=== PATIENT | male | born 1930 | race Caucasian/White ===

== ENCOUNTER 2017-02-08 10:00 | Inpatient (IN) | payer MEDICARE, BC ==
[~2017-02-08] VITALS: Ht 182.9 cm; Wt 84.8 kg
[~2017-02-08 10:00] MED LIST: ASPI81 PO; DONE5TAB14 PO; DORZ2SOL3 EACH EYE; FOLI20CA PO; LANTUS2P SQ; LEVO.025 PO; LORTA5 PO; MAGN400T PO; MEMA1TAB2; METF500 PO; METH1TAB2 PO; MIRA33502 PO; MORP30SU PO; NOVONP2 SQ; POTA-243 PO; SENN8.6T15 PO; TAB-TAB PO; VITA100032; ZOCO80TA PO
[2017-02-08 10:08] VITALS: BP 123/59; PULSE 67; RESP 16; TEMP 98.8; O2SAT 97
--- NOTE | 2017-02-08 11:20 | PD ---
HPI Chief Complaint: Fall Time Seen by Provider: 11:02 Travel History International Travel<30 days: No Contact w/Intl Traveler<30days: No Traveled to known affect area: No History of Present Illness HPI The patient is a 86-year-old male who presents to the emergency department with his son for right hip pain. The son states the patient fell several days ago at the assisted living facility, they obtained an outpatient x- ray, report was negative. However, the patient is continued to complain of some mild right sided hip pain and has fallen twice since the initial fall, the son thinks secondary to right hip pain. 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 The patient apparently fell last night striking the front of his head, he the son is unsure if there was a loss of consciousness. The patient denies any headache, neck pain, chest pain, shortness breath, or abdominal pain. He does complain of pain located over the lateral aspect the right hip. The son also states the patient has a chronic history of lower extremity edema and there has been increased edema to lower extremities or last several days. The patient does wear compression stockings and calf wraps. The patient's symptoms are moderate, possibly exacerbated after a fall, and there are no current alleviating factors. PFSH Past Medical History Arthritis: Yes Heart Rhythm Problems: No Cancer: Yes (RT KIDNEY CA-REMOVED.) Cardiac Catheterization: No Cardiovascular Problems: No High Cholesterol: Yes Congestive Heart Failure: No Cerebrovascular Accident: Yes (POSSIBLE TIA 20 YRS AGO) Diabetes: Yes (type II) Patient Takes Glucophage: Yes Diminished Hearing: Yes ([place]) Glaucoma: Yes Hypertension: Yes Immunizations Current: Yes Myocardial Infarction: No Thyroid Disease: Yes (hypo) Past Surgical History Cholecystectomy: Yes Coronary Artery Bypass Graft: No Genitourinary Surgery: Yes (RT NEPHRECTOMY 2006) Joint Replacement: Yes (LEFT KNEE- osteotomy) Other Surgery: Yes (RT URETER CANCER) Family History Family Myocardial Infarction: No Social History Alcohol Use: No Tobacco Use: No Substance Use: No Allergies-Medications (Allergen,Severity, Reaction): Coded Allergies: Visipaque (Verified Allergy, Severe, Hives, 02/08/17) Codeine (Verified Adverse Reaction, Intermediate, Nausea/Vomiting, 02/08/17 ) Reported Meds & Prescriptions Reported Meds & Active Scripts Active Reported Hydrocodone-Acetaminophen 5-325 mg Tab 1 Tab PO Q4H PRN Clonazepam 0.5 Mg Tab 0.5 Mg PO BID PRN Vitamin D-3 (Cholecalciferol) 2,000 Unit Tab Zocor (Simvastatin) 40 Mg Tab 40 Mg PO DAILY Senna Lax (Sennosides) 8.6 Mg Tab Morphine ER (Morphine Sulfate) 30 Mg Tab 30 Mg PO BID Metoprolol Tartrate 25 Mg Tab 25 Mg PO BID Methenamine Hippurate 1 Gm Tab 1 Gm PO BID Metformin (Metformin HCl) 1,000 Mg Tab 1,000 Mg PO BIDPC With meals Memantine 10 Mg Tab 10 Mg PO BID Magnesium Oxide 250 Mg Tab 250 Mg PO BID Losartan (Losartan Potassium) 50 Mg Tab 75 Mg PO BID Levothyroxine (Levothyroxine Sodium) 50 Mcg Tab 50 Mcg PO DAILY Lantus Inj (Insulin Glargine) 100 Unit/Ml Inj 26 Units SQ HS Klor-Con 10 (Potassium Chloride) 10 Meq Tab 10 Meq PO DAILY Hydrochlorothiazide 25 Mg Tab 25 Mg PO DAILY Folic Acid 400 Mcg Tab 400 Mcg PO DAILY Escitalopram (Escitalopram Oxalate) 10 Mg Tab 10 Mg PO DAILY Dorzolamide Opth Drops (Dorzolamide HCl) 2% Soln 1 Drop EACH EYE BID Donepezil 10 Mg Tab 10 Mg PO HS Buspirone (Buspirone HCl) 5 Mg Tab 5 Mg PO TID Aspirin 81 Mg Chew 81 Mg CHEW DAILY Review of Systems Except as stated in HPI: all other systems reviewed are Neg HENT: No: Headaches, Neck Pain Cardiovascular: No: Chest Pain or Discomfort Respiratory: No: Shortness of Breath Gastrointestinal: No: Nausea, Vomiting, Abdominal Pain Musculoskeletal: Positive: Limited ROM, Pain Neurologic: Positive: Other (history of early dementia), No: Dizziness, Paresthesia, Sensory Disturbance Physical Exam Narrative GENERAL: Awake, alert, pleasant 86-year-old male who appears his stated age and is in no acute respiratory distress. SKIN: Abrasions noted over the frontal forehead. HEAD: Atraumatic. Normocephalic. EYES: Pupils equal and round. Pupils are 1 mm bilateral. ENT: No nasal bleeding or discharge. Slightly dry mucous membranes. NECK: Trachea midline. No JVD. CARDIOVASCULAR: Regular rate and rhythm. No murmur appreciated. RESPIRATORY: No accessory muscle use. Clear to auscultation. Breath sounds equal bilaterally. GASTROINTESTINAL: Abdomen soft, non-tender, nondistended. No rebound tenderness. MUSCULOSKELETAL: Ecchymosis noted over the lateral aspect of the right hip. Patient is able flex the right hip to 45 with moderate discomfort. Bilateral lower extremity pitting edema. NEUROLOGICAL: Awake and alert. No obvious cranial nerve deficits. Motor grossly within normal limits. Normal speech. Patient is oriented to person, month, and year. Patient did not know his current location. Back: No obvious step-off over the thoracic or lumbar vertebrae. PSYCHIATRIC: Appropriate mood and affect; insight and judgment normal. Data Data Last Documented VS Vital Signs Date Time Temp Pulse Resp B/P Pulse Ox O2 Delivery O2 Flow Rate FiO2 02/08/17 10:08 98.8 67 16 123/59 97 Orders Complete Blood Count With Diff (02/08/17 11:13) Comprehensive Metabolic Panel (02/08/17 11:13) Urinalysis - C+S If Indicated (02/08/17 11:13) Hip, Uni(Ap&Lat) W Ap Pelvis (02/08/17 ) Chest, Single Ap (02/08/17 ) Ct Brain W/O Iv Contrast(Rout) (02/08/17 ) Admit Order (Ed Use Only) (02/08/17 12:43) Consult Orthopedic (02/08/17 ) Labs Laboratory Tests Test 02/08/17 02/08/17 11:39 12:05 White Blood Count 11.1 TH/MM3 Red Blood Count 3.47 MIL/MM3 Hemoglobin 9.8 GM/DL Hematocrit 30.2 % Mean Corpuscular Volume 87.1 FL Mean Corpuscular Hemoglobin 28.2 PG Mean Corpuscular Hemoglobin 32.3 % Concent Red Cell Distribution Width 14.1 % Platelet Count 167 TH/MM3 Mean Platelet Volume 7.9 FL Neutrophils (%) (Auto) 77.0 % Lymphocytes (%) (Auto) 12.6 % Monocytes (%) (Auto) 6.3 % Eosinophils (%) (Auto) 3.1 % Basophils (%) (Auto) 1.0 % Neutrophils # (Auto) 8.6 TH/MM3 Lymphocytes # (Auto) 1.4 TH/MM3 Monocytes # (Auto) 0.7 TH/MM3 Eosinophils # (Auto) 0.3 TH/MM3 Basophils # (Auto) 0.1 TH/MM3 CBC Comment AUTO DIFF Differential Comment AUTO DIFF CONFIRMED Sodium Level 145 MEQ/L Potassium Level 3.4 MEQ/L Chloride Level 104 MEQ/L Carbon Dioxide Level 33.5 MEQ/L Anion Gap 8 MEQ/L Blood Urea Nitrogen 42 MG/DL Creatinine 1.20 MG/DL Estimat Glomerular Filtration 57 ML/MIN Rate Random Glucose 87 MG/DL Calcium Level 8.3 MG/DL Total Bilirubin 0.6 MG/DL Aspartate Amino Transf 27 U/L (AST/SGOT) Alanine Aminotransferase 24 U/L (ALT/SGPT) Alkaline Phosphatase 61 U/L Total Protein 6.5 GM/DL Albumin 2.8 GM/DL Urine Color YELLOW Urine Turbidity CLEAR Urine pH 6.0 Urine Specific [place] 1.022 Urine Protein TRACE mg/dL Urine Glucose (UA) NEG mg/dL Urine Ketones NEG mg/dL Urine Occult Blood NEG Urine Nitrite NEG Urine Bilirubin NEG Urine Leukocyte Esterase NEG Urine WBC 0-2 /hpf Urine Squamous Epithelial 0-5 /hpf Cells Urine Bacteria RARE /hpf Microscopic Urinalysis Comment CULT NOT INDICATED MDM Medical Decision Making Medical Screen Exam Complete: Yes Emergency Medical Condition: Yes Medical Record Reviewed: Yes Interpretation(s) Laboratory Tests Test 02/08/17 02/08/17 11:39 12:05 White Blood Count 11.1 TH/MM3 Red Blood Count 3.47 MIL/MM3 Hemoglobin 9.8 GM/DL Hematocrit 30.2 % Mean Corpuscular Volume 87.1 FL Mean Corpuscular Hemoglobin 28.2 PG Mean Corpuscular Hemoglobin 32.3 % Concent Red Cell Distribution Width 14.1 % Platelet Count 167 TH/MM3 Mean Platelet Volume 7.9 FL Neutrophils (%) (Auto) 77.0 % Lymphocytes (%) (Auto) 12.6 % Monocytes (%) (Auto) 6.3 % Eosinophils (%) (Auto) 3.1 % Basophils (%) (Auto) 1.0 % Neutrophils # (Auto) 8.6 TH/MM3 Lymphocytes # (Auto) 1.4 TH/MM3 Monocytes # (Auto) 0.7 TH/MM3 Eosinophils # (Auto) 0.3 TH/MM3 Basophils # (Auto) 0.1 TH/MM3 CBC Comment AUTO DIFF Differential Comment AUTO DIFF CONFIRMED Sodium Level 145 MEQ/L Potassium Level 3.4 MEQ/L Chloride Level 104 MEQ/L Carbon Dioxide Level 33.5 MEQ/L Anion Gap 8 MEQ/L Blood Urea Nitrogen 42 MG/DL Creatinine 1.20 MG/DL Estimat Glomerular Filtration 57 ML/MIN Rate Random Glucose 87 MG/DL Calcium Level 8.3 MG/DL Total Bilirubin 0.6 MG/DL Aspartate Amino Transf 27 U/L (AST/SGOT) Alanine Aminotransferase 24 U/L (ALT/SGPT) Alkaline Phosphatase 61 U/L Total Protein 6.5 GM/DL Albumin 2.8 GM/DL Urine Color YELLOW Urine Turbidity CLEAR Urine pH 6.0 Urine Specific [place] 1.022 Urine Protein TRACE mg/dL Urine Glucose (UA) NEG mg/dL Urine Ketones NEG mg/dL Urine Occult Blood NEG Urine Nitrite NEG Urine Bilirubin NEG Urine Leukocyte Esterase NEG Urine WBC 0-2 /hpf Urine Squamous Epithelial 0-5 /hpf Cells Urine Bacteria RARE /hpf Microscopic Urinalysis Comment CULT NOT INDICATED CT the brain reveals chronic changes, no acute findings. X-ray of the right hip reveals intertrochanteric fracture with avulsion of the greater trochanter. Intact pelvis and left hip. Chest x-ray reveals no acute disease. Differential Diagnosis Differential diagnosis includes subdural hemorrhage, pelvic fracture, hip fracture, hyponatremia, chronic lymphedema, contusion, hematoma, UTI. Narrative Course IV was established, labs were drawn and sent, and the patient was placed on cardiac telemetry monitoring and continuous pulse oximetry monitoring. Pelvis x -ray and x-ray the right hip were obtained. UA was sent to lab. X-ray of the pelvis and right hip reveals a right intertrochanteric fracture with avulsion of the right greater trochanter. Chest x-ray was obtained, unremarkable. CT the brain reveals chronic changes, no acute findings. The patient had morphine orally this morning, did not request pain medications or want pain medications upon evaluation in the emergency department. I had a discussion with the patient and son at bedside regarding the hip fracture, patient will be admitted and transferred to [facility] for further evaluation by orthopedics. A call was placed to the on-call orthopedic surgeon and to [facility] for admission. Physician Communication Physician Communication A call was placed to the on-call orthopedist. A call was placed to [facility] for admission. I discussed the patient with Dr. Ye who agrees with admission. Diagnosis Primary Impression: Intertrochanteric fracture of right hip Qualified Code: S72.141A - Intertrochanteric fracture of right hip, closed, initial encounter Admitting Information Admitting Physician Requests: Admit Condition: Stable Denilson Marley MD Feb 08, 2017 11:20
[2017-02-08 11:48] LABS: AUTOMATED NEUTROPHIL # 8.6 TH/MM3 (1.8-7.7); BASOPHIL # 0.1 TH/MM3 (0-0.2); EOSINOPHIL # 0.3 TH/MM3 (0-0.4); EOSINOPHIL % 3.1 % (0.0-4.0); HEMATOCRIT 30.2 % (39.0-51.0); LYMPH % 12.6 % (9.0-44.0); LYMPHOCYTE # 1.4 TH/MM3 (1.0-4.8); MEAN CELL VOLUME 87.1 FL (80.0-100.0); MEAN CORPUSCULAR HEMOGLOBIN 28.2 PG (27.0-34.0); MEAN CORPUSCULAR HGB CONC 32.3 % (32.0-36.0); MONO % 6.3 % (0.0-8.0); PLATELET COUNT 167 TH/MM3 (150-450); RED BLOOD COUNT 3.47 MIL/MM3 (4.50-5.90); RED CELL DISTRIBUTION WIDTH 14.1 % (11.6-17.2); WHITE BLOOD COUNT 11.1 TH/MM3 (4.0-11.0)
[2017-02-08 11:53] LABS: CHLORIDE 104 MEQ/L (98-107); POTASSIUM 3.4 MEQ/L (3.5-5.1); SODIUM (NA) 145 MEQ/L (136-145)
--- NOTE | 2017-02-08 11:53 | RADHPO ---
EXAM DATE/TIME: 02/08/2017 11:21 [facility] COMPARISON: No previous studies available for comparison. INDICATIONS : Right hip pain after fall. MEDICAL HISTORY : None. SURGICAL HISTORY : None. ENCOUNTER: Initial ACUITY: 3 days PAIN SCORE: 5/10 LOCATION: Right hip FINDINGS: Examination of the right hip was performed with AP Pelvis. A fracture is identified along the intertr ochanteric ridge. There is avulsion of the greater trochanter. Femoral head remains well-seated withi n the acetabulum. Proximal femoral shaft is intact. Bony pelvis is intact. CONCLUSION: Intertrochanteric fracture with avulsion of the greater trochanter is noted. Intact pelvis and left hip. Enoc Dunbar MD on February 08, 2017 at 11:49 Board Certified Radiologist. This report was verified electronically.
[2017-02-08 11:57] LABS: ANION GAP 8 MEQ/L (5-15); BICARBONATE 33.5 MEQ/L (21.0-32.0); BLOOD UREA NITROGEN 42 MG/DL (7-18)
[2017-02-08 12:00] LABS: AST (GOT) 27 U/L (15-37); GLOMERULAR FILTRATION RATE 57 ML/MIN (>89)
[2017-02-08 12:01] LABS: HEMO FLAGS AUTO DIFF; TOTAL BILIRUBIN ADULT 0.6 MG/DL (0.2-1.0)
[2017-02-08 12:02] LABS: ALKALINE PHOSPHATASE 61 U/L (45-117)
[2017-02-08] MEDS ORDERED: BUSP5TAB PO (12:02)
[2017-02-08] MEDS ORDERED: ASPI81CH CHEW (12:02)
[2017-02-08] MEDS ORDERED: DORZ2SOL EACH EYE (12:03)
[2017-02-08] MEDS ORDERED: ZOCO40TA PO (12:03)
[2017-02-08] MEDS ORDERED: LOSA50TA PO (12:03)
[2017-02-08] MEDS ORDERED: CHOL1TAB42 (12:03)
[2017-02-08] MEDS ORDERED: METF1000 PO (12:03)
[2017-02-08] MEDS ORDERED: CLON0.5T PO (12:03)
[2017-02-08] MEDS ORDERED: MAGN250T9 PO (12:03)
[2017-02-08] MEDS ORDERED: HYDR-3516 PO (12:03)
[2017-02-08] MEDS ORDERED: LANTUS2P SQ (12:03)
[2017-02-08] MEDS ORDERED: SENN8.6T15 (12:03)
[2017-02-08] MEDS ORDERED: HYDR25TA5 PO (12:03)
[2017-02-08] MEDS ORDERED: DONE10TA7 PO (12:03)
[2017-02-08] MEDS ORDERED: METH1TAB2 PO (12:03)
[2017-02-08] MEDS ORDERED: MEMA1TAB2 PO (12:03)
[2017-02-08] MEDS ORDERED: METO25TA3 PO (12:03)
[2017-02-08] MEDS ORDERED: MORP1TAB25 PO (12:03)
[2017-02-08] MEDS ORDERED: POTA-243 PO (12:03)
[2017-02-08] MEDS ORDERED: LEVO50TA4 PO (12:03)
[2017-02-08] MEDS ORDERED: ESCI10TA PO (12:03)
[2017-02-08] MEDS ORDERED: FOLI400T PO (12:03)
[2017-02-08 12:05] LABS: ALT (GPT) 24 U/L (12-78)
[2017-02-08 12:17] LABS: BLOOD, URINE NEG (NEG); GLUCOSE,URINE NEG (NEG); KETONE, URINE NEG (NEG); NITRITE,URINE NEG (NEG)
[2017-02-08 12:23] LABS: BACTERIA, URINE RARE /hpf; COMMENT (UR) CULT NOT INDICATED; CULTURE IF INDICATED CULT NOT INDICATED; SQUAMOUS EPITHELIAL CELL URINE 0-5 /hpf (0-5); URINE COLOR YELLOW (YELLW/STRAW); WBC, URINE 0-2 /hpf (0-5)
[2017-02-08 12:28] LABS: SCAN/DIFF AUTO DIFF CONFIRMED
--- NOTE | 2017-02-08 12:46 | RADHPO ---
EXAM DATE/TIME: 02/08/2017 12:18 [facility] COMPARISON: CT BRAIN W/O CONTRAST, April 27, 2014, 20:45. INDICATIONS : Generalized weakness and multiple falls in past few days. RADIATION DOSE: 56.71 CTDIvol (mGy) MEDICAL HISTORY : Hypothyroidism. Cerebrovascular disease. Hypertension.Renal cancer. Prostate cancer. SURGICAL HISTORY : Nephrectomy, right. ENCOUNTER: Initial ACUITY: 3 days PAIN SCALE: 0/10 LOCATION: cranial TECHNIQUE: Multiple contiguous axial images were obtained of the head. Using automated exposure control and adj ustment of the mA and/or kV according to patient size, radiation dose was kept as low as reasonably a chievable to obtain optimal diagnostic quality images. FINDINGS: There is moderate central and cortical atrophy with dilatation of ventricular and sulcal spaces. Diff use hypodensity seen throughout the cerebral white matter. There is no parenchymal hemorrhage, acute infarction or mass lesion identified. There are no extra-axial fluid collections appreciated. The posterior fossa is unremarkable with midline fourth ventricle. The portion of the orbits and paranas al sinuses visualized are unremarkable. No significant change is seen compared to prior study. CONCLUSION: Aging brain with atrophic changes and chronic white matter disease. No evidence of acute infarct, hemorrhage, mass, edema or interval change. Enoc Dunbar MD on February 08, 2017 at 12:43 Board Certified Radiologist. This report was verified electronically.
--- NOTE | 2017-02-08 12:49 | RADHPO ---
EXAM DATE/TIME: 02/08/2017 11:59 [facility] COMPARISON: No previous studies available for comparison. INDICATIONS : Evaluate for pneumonia,. pneumothorax or communicable disease. Pre op right hip fracture. MEDICAL HISTORY : None. SURGICAL HISTORY : None. ENCOUNTER: Subsequent ACUITY: 1 day PAIN SCORE: 0/10 LOCATION: Bilateral chest FINDINGS: A single view of the chest demonstrates the lungs to be symmetrically aerated without evidence of mas s, infiltrate or effusion. The cardiomediastinal contours are unremarkable. Osseous structures are intact. CONCLUSION: No acute disease. Enoc Dunbar MD on February 08, 2017 at 12:47 Board Certified Radiologist. This report was verified electronically.
[2017-02-08] MEDS ORDERED: ONDANSETRON HCL 4 MG/2 ML VIAL IV PUSH ONE (13:45)
[2017-02-08] MEDS ORDERED: MORPHINE SULFATE 4 MG/ML INJ IV PUSH ONE (13:45)
[2017-02-08 13:56] VITALS: BP 186/80; PULSE 70; RESP 15; O2SAT 92
[2017-02-08] MEDS ORDERED: NALOXONE HCL 0.4 MG/ML AMP IV PRN (14:00)
[2017-02-08] MEDS ORDERED: ONDANSETRON HCL 4 MG/2 ML VIAL IVP PRN (14:00)
[2017-02-08] MEDS ORDERED: ACETAMINOPHEN 325 MG TAB PO PRN (14:00)
[2017-02-08] MEDS ORDERED: SODIUM CHLORIDE 0.9% FLUSH 5 ML FLUSH FLUSH PRN (14:00)
--- NOTE | 2017-02-08 15:05 | RADHPO ---
EXAM DATE/TIME: 02/08/2017 14:29 [facility] COMPARISON: No previous studies available for comparison. INDICATIONS : Multiple falls. Evaluate right intertrochanteric fracture and questionable left intertrochanteric fra cture. ORAL CONTRAST: No oral contrast ingested. RADIATION DOSE: 30.64 CTDIvol (mGy) MEDICAL HISTORY : Hypothyroidism. Cerebrovascular disease. Hypertension.Right renal cancer. Prostate cancer. SURGICAL HISTORY : Nephrectomy, right. ENCOUNTER: Initial ACUITY: 3 days PAIN SCALE: 3/10 LOCATION: Bilateral pelvis TECHNIQUE: Volumetric scanning of the pelvis was performed. Using automated exposure control and adjustment of the mA and/or kV according to patient size, radiation dose was kept as low as reasonably achievable t o obtain optimal diagnostic quality images. FINDINGS: An acute fracture involving the greater trochanter of the right hip is observed. The fracture extends along the posterior cortical margin of the greater trochanter. No involvement of the lesser trochant er. Femoral head remains in contact with the acetabulum. Osteoarthritic changes noted involving the h ip joints bilaterally as well as the lower lumbar spine. No fracture observed involving the left hip. Pelvis is intact otherwise. A small intramuscular hematoma is seen involving the gluteus tyler on the right. This measures 3 cm in diameter. A small hematoma seen directly adjacent to the posterior c ortical margin of the greater trochanter as well. This is more curvilinear in nature. This measures a pproximately 5 x 2 cm. No intrapelvic hematoma. CONCLUSION: Acute fracture of the greater trochanter of the right hip. There is associated hematoma formation as detailed above. Left hip is intact. Marin Ledbetter Jr., MD on February 08, 2017 at 14:57 Board Certified Radiologist. This report was verified electronically.
--- NOTE | 2017-02-08 16:06 | HHI.HP ---
[facility] Service [facility] Phys[facility] Non-Staff Admission Diagnosis right intertrochanteric fracture, mechanical fall Diagnoses: (1) Intertrochanteric fracture of right hip Chief Complaint: Right hip pain Travel History International Travel<30 Days: No Contact w/Intl Traveler <30 Da: No Traveled to Known Affected Are: No History of Present Illness 86-year-old male with a history of diabetes type 2, hyperlipidemia was brought to the ED from local [facility] for evaluation of right hip pain 4 days duration following a mechanical fall without any initial reported head trauma or loss of consciousness. An outside x-ray obtain few days ago was read as negative, however patient continued to complain of mild right sided hip pain noted 7/10 in intensity. Patient again sustained a fall last night; however this time striking the front of his head but unsure if there was any loss of consciousness. Patient does have a history of dementia and is a very poor historian. Also reported, was the increase bilateral lower extremity edema without any complaint of chest pain or shortness of breath over the past several days. Review of Systems Other 12 systems reviewed and are negative except for the ones mentioned in history of present illness Past Family Social History Past Medical History Cancer: Yes (RT KIDNEY CA-REMOVED.) High Cholesterol: Yes Cerebrovascular Accident: Yes (POSSIBLE TIA 20 YRS AGO) Diabetes: Yes (type II) Diminished Hearing: Yes ([place]) Glaucoma: Yes Hypertension: Yes Immunizations Current: Yes Thyroid Disease: Yes (hypo) Past Surgical History Cholecystectomy: Yes Genitourinary Surgery: Yes (RT NEPHRECTOMY 2005) Joint Replacement: Yes (LEFT KNEE- osteotomy) Other Surgery: Yes (RT URETER CANCER) Reported Medications Hydrocodone-Acetaminophen 5-325 mg Tab 1 Tab PO Q4H PRN Clonazepam 0.5 Mg Tab 0.5 Mg PO BID PRN Vitamin D-3 (Cholecalciferol) 2,000 Unit Tab Zocor (Simvastatin) 40 Mg Tab 40 Mg PO DAILY Senna Lax (Sennosides) 8.6 Mg Tab Morphine ER (Morphine Sulfate) 30 Mg Tab 30 Mg PO BID Metoprolol Tartrate 25 Mg Tab 25 Mg PO BID Methenamine Hippurate 1 Gm Tab 1 Gm PO BID Metformin (Metformin HCl) 1,000 Mg Tab 1,000 Mg PO BIDPC With meals Memantine 10 Mg Tab 10 Mg PO BID Magnesium Oxide 250 Mg Tab 250 Mg PO BID Losartan (Losartan Potassium) 50 Mg Tab 75 Mg PO BID Levothyroxine (Levothyroxine Sodium) 50 Mcg Tab 50 Mcg PO DAILY Lantus Inj (Insulin Glargine) 100 Unit/Ml Inj 26 Units SQ HS Klor-Con 10 (Potassium Chloride) 10 Meq Tab 10 Meq PO DAILY Hydrochlorothiazide 25 Mg Tab 25 Mg PO DAILY Folic Acid 400 Mcg Tab 400 Mcg PO DAILY Escitalopram (Escitalopram Oxalate) 10 Mg Tab 10 Mg PO DAILY Dorzolamide Opth Drops (Dorzolamide HCl) 2% Soln 1 Drop EACH EYE BID Donepezil 10 Mg Tab 10 Mg PO HS Buspirone (Buspirone HCl) 5 Mg Tab 5 Mg PO TID Aspirin 81 Mg Chew 81 Mg CHEW DAILY Allergies: Coded Allergies: Visipaque (Verified Allergy, Severe, Hives, 02/08/17) Codeine (Verified Adverse Reaction, Intermediate, Nausea/Vomiting, 02/08/17 ) Family History Secondary to patient's age, family history not relevant for this case Social History Alcohol Use: No Tobacco Use: No Substance Use: No Physical Exam Vital Signs Vital Signs Date Time Temp Pulse Resp B/P Pulse Ox O2 Delivery O2 Flow Rate FiO2 02/08/17 13:56 70 15 186/80 92 02/08/17 10:08 98.8 67 16 123/59 97 Physical Exam GENERAL: This is a well-nourished, well-developed patient, in no apparent distress. SKIN: + Ecchymosis frontal left side. Cool and dry. HEAD: Atraumatic. Normocephalic. No temporal or scalp tenderness. EYES: Pupils equal round and reactive. Extraocular motions intact. No scleral icterus. No injection or drainage. ENT: Nose without bleeding, purulent drainage or septal hematoma. Throat without erythema, tonsillar hypertrophy or exudate. Uvula midline. Airway patent. NECK: Trachea midline. No JVD or lymphadenopathy. Supple, nontender, no meningeal signs. CARDIOVASCULAR: Regular rate and rhythm without murmurs, gallops, or rubs. RESPIRATORY: Clear to auscultation. Breath sounds equal bilaterally. No wheezes , rales, or rhonchi. GASTROINTESTINAL: Abdomen soft, non-tender, nondistended. No hepato-splenomegaly , or palpable masses. No guarding. MUSCULOSKELETAL: Extremities without clubbing, cyanosis; +1 edema BLE. Right lower extremity tender to palpation at the hip joint with limited range of motion NEUROLOGICAL: Awake and alert. Cranial nerves II through XII intact. Motor and sensory grossly within normal limits. Five out of 5 muscle strength in all muscle groups. Normal speech. Laboratory Laboratory Tests Test 02/08/17 02/08/17 11:39 12:05 White Blood Count 11.1 Red Blood Count 3.47 Hemoglobin 9.8 Hematocrit 30.2 Mean Corpuscular Volume 87.1 Mean Corpuscular Hemoglobin 28.2 Mean Corpuscular Hemoglobin 32.3 Concent Red Cell Distribution Width 14.1 Platelet Count 167 Mean Platelet Volume 7.9 Neutrophils (%) (Auto) 77.0 Lymphocytes (%) (Auto) 12.6 Monocytes (%) (Auto) 6.3 Eosinophils (%) (Auto) 3.1 Basophils (%) (Auto) 1.0 Neutrophils # (Auto) 8.6 Lymphocytes # (Auto) 1.4 Monocytes # (Auto) 0.7 Eosinophils # (Auto) 0.3 Basophils # (Auto) 0.1 CBC Comment AUTO DIFF Differential Comment AUTO DIFF CONFIRMED Sodium Level 145 Potassium Level 3.4 Chloride Level 104 Carbon Dioxide Level 33.5 Anion Gap 8 Blood Urea Nitrogen 42 Creatinine 1.20 Estimat Glomerular Filtration 57 Rate Random Glucose 87 Calcium Level 8.3 Total Bilirubin 0.6 Aspartate Amino Transf 27 (AST/SGOT) Alanine Aminotransferase 24 (ALT/SGPT) Alkaline Phosphatase 61 Total Protein 6.5 Albumin 2.8 Urine Color YELLOW Urine Turbidity CLEAR Urine pH 6.0 Urine Specific [place] 1.022 Urine Protein TRACE Urine Glucose (UA) NEG Urine Ketones NEG Urine Occult Blood NEG Urine Nitrite NEG Urine Bilirubin NEG Urine Leukocyte Esterase NEG Urine WBC 0-2 Urine Squamous Epithelial 0-5 Cells Urine Bacteria RARE Microscopic Urinalysis Comment CULT NOT INDICATED Result Diagram: 02/08/17 1139 02/08/17 1139 Assessment and Plan Problem List: (1) Intertrochanteric fracture of right hip ICD Code: S72.141A Status: Acute Assessment and Plan 86-year-old man with Intertrochanteric fracture of the right hip: s/p Mechanical fall. CT pelvic/ abdomen noted and review with finding of acute fracture of the right for which Orthopedic surgery has been consulted. Pain management. Keep NPO after midnight. DVT prophylaxis post procedure per orthopedic surgery. PT consult postprocedure Mechanical fall: Head CT noted and reviewed without any acute finding.UA negative. Fall precaution. Leukocytosis: UA negative and CXR without any acute finding DM2: hold lantus as well as Oral hypoglycemic agent. Start ISS with [facility]SB[facility] monitoring HLP, dementia: Resume outpatient medications DVT prophylaxis: B-SCD Code Status Full code Discussed Condition With Patient, ED physician Physician Certification 2 Midnight Certification Type: Admission for Inpatient Services Order for Inpatient Services The services are ordered in accordance with Medicare regulations or non- Medicare payer requirements, as applicable. In the case of services not specified as inpatient-only, they are appropriately provided as inpatient services in accordance with the 2-midnight benchmark. Estimated LOS (days): 2 days is the estimated time the patient will need to remain in the hospital, assuming treatment plan goals are met and no additional complications. Post-Hospital Plan: Not yet determined Problem Qualifiers (1) Intertrochanteric fracture of right hip: Qualified Code: S72.141A - Intertrochanteric fracture of right hip, closed, initial encounter Erickson Ye MD Feb 08, 2017 16:06
[2017-02-08] MEDS: SODIUM CHLOR 0.9% 1000 ML INJ 1,000 ML IV SCH (16:08)
[2017-02-08] MEDS ORDERED: PILL SPLITTER OTHER PRN (16:30)
[2017-02-08] MEDS ORDERED: GLUCAGON 1 MG/ML VIAL OTHER PRN (16:30)
[2017-02-08] MEDS ORDERED: DEXTROSE 50% IN WATER 50 ML VIAL(D50) IV PUSH PRN (16:30)
[2017-02-08] MEDS ORDERED: ENALAPRILAT 1.25 MG/ML VIAL IV PUSH PRN (16:30)
[2017-02-08] MEDS ORDERED: RESP: ALBUTEROL 2.5 MG/IPRATROPIUM 0.5 MG NEB (PRN) NEB (16:30)
[2017-02-08 18:27] VITALS: BP 162/68; PULSE 75; RESP 15; O2SAT 96
[2017-02-08 19:45] VITALS: BP 152/76; PULSE 72; RESP 16; TEMP 98.4; O2SAT 93
[2017-02-08] MEDS: METOPROLOL TARTRATE 25 MG TAB PO SCH (21:18)
[2017-02-08] MEDS: MEMANTINE HCL 10 MG TAB PO SCH (21:19)
[2017-02-08] MEDS: DONEPEZIL HCL 5 MG TAB PO SCH (21:19)
[2017-02-08] MEDS: LOSARTAN 50 MG TAB PO SCH (21:19)
[2017-02-08] MEDS: DORZOLAMIDE 2% OPTH SOLN 200 DROP/10 ML BTLO EACH EYE SCH (21:20)
[2017-02-08] MEDS: INSULIN ASPART SUPPLEMENTAL SCALE SQ SCH (21:31)
[2017-02-08] MEDS: SODIUM CHLORIDE 0.9% FLUSH 5 ML FLUSH FLUSH SCH (21:32)
[2017-02-08 21:40] VITALS: BP 137/62; PULSE 70; RESP 16; O2SAT 98
[2017-02-09] VITALS (8 sets, daily range): BP systolic 118–187; BP diastolic 60–74; PULSE 61–89; RESP 16–20; TEMP 97.4–98.8; O2SAT 92–98
[2017-02-09] MEDS: ACETAMINOPHEN 325 MG TAB PO PRN ×2 (01:37→09:05)
[2017-02-09] MEDS ORDERED: INSULIN HUMAN REGULAR 1,000 UNITS/10 ML VIAL SQ PRN (01:45)
[2017-02-09] MEDS: SODIUM CHLORID 0.9% 500 ML IV SCH ×2 (01:45→12:15)
[2017-02-09] MEDS: LACTATED RINGER'S 1000 ML IV SCH (01:45)
[2017-02-09] MEDS: LEVOTHYROXINE SODIUM 50 MCG TAB PO SCH (05:22)
[2017-02-09] MEDS: SODIUM CHLOR 0.9% 1000 ML INJ 1,000 ML IV SCH ×2 (05:22→16:28)
[2017-02-09 06:17] LABS: PROTHROMBIN TIME - PATIENT 11.6 SEC (9.8-11.6)
[2017-02-09] MEDS: INSULIN ASPART SUPPLEMENTAL SCALE SQ SCH ×4 (06:20→21:53)
[2017-02-09 06:28] LABS: ANION GAP 11 MEQ/L (5-15); AST (GOT) 19 U/L (15-37); BICARBONATE 29.8 MEQ/L (21.0-32.0); BLOOD UREA NITROGEN 32 MG/DL (7-18); CHLORIDE 105 MEQ/L (98-107); GLOMERULAR FILTRATION RATE 88 ML/MIN (>89); POTASSIUM 3.4 MEQ/L (3.5-5.1); SODIUM (NA) 146 MEQ/L (136-145)
[2017-02-09 06:31] LABS: ALKALINE PHOSPHATASE 49 U/L (45-117); ALT (GPT) 20 U/L (12-78); TOTAL BILIRUBIN ADULT 0.5 MG/DL (0.2-1.0)
[2017-02-09] MEDS: SODIUM CHLORIDE 0.9% FLUSH 5 ML FLUSH FLUSH SCH ×2 (09:00→20:48)
[2017-02-09] MEDS: DORZOLAMIDE 2% OPTH SOLN 200 DROP/10 ML BTLO EACH EYE SCH ×2 (09:00→21:49)
[2017-02-09] MEDS: MEMANTINE HCL 10 MG TAB PO SCH ×2 (09:00→20:48)
[2017-02-09] MEDS: PRAVASTATIN SOD 40 MG TAB PO SCH (09:03)
[2017-02-09] MEDS: METOPROLOL TARTRATE 25 MG TAB PO SCH ×2 (09:05→20:49)
[2017-02-09] MEDS: LOSARTAN 50 MG TAB PO SCH ×2 (09:06→20:49)
--- NOTE | 2017-02-09 11:28 | PD.ORT.PN ---
Subjective Subjective Remarks FULL CONSULT NOTE TO FOLLOW right greater troch fx no issues. no CP/SOB Objective Vitals Vital Signs Date Time Temp Pulse Resp B/P Pulse Ox O2 Delivery O2 Flow Rate FiO2 02/09/17 09:10 Room Air 02/09/17 08:00 98.1 61 16 187/73 92 02/09/17 02:31 98 Room Air 02/09/17 02:02 98.2 63 16 158/72 98 02/09/17 00:30 88 16 118/60 98 Room Air 02/08/17 21:40 70 16 137/62 98 Room Air 02/08/17 19:45 98.4 72 16 152/76 93 Room Air 02/08/17 18:27 75 15 162/68 96 02/08/17 13:56 70 15 186/80 92 I/O 02/08/17 02/08/17 02/08/17 02/09/17 02/09/17 02/09/17 07:00 15:00 23:00 07:00 15:00 23:00 Intake Total 250 ml 339 ml Output Total 300 ml Balance 250 ml 39 ml Intake Oral 250 ml 0 ml IV Total 339 ml Output Urine Total 300 ml # Voids 1 # Bowel Movements 0 Result Diagram: 02/08/17 1139 02/09/17 0550 Other Results Laboratory Tests Test 02/09/17 05:50 Prothrombin Time 11.6 SEC (9.8-11.6) Prothromb Time International 1.0 RATIO Ratio Objective Remarks RLE: grossly nvi. TTP GT area. SILT distally Assessment & Plan Assessment and Plan right greater troch fx NWB RLE no hip ROM non treatment f/u Dr Posadas 2 wks ok to Prasanna Gardner Jr., MD Feb 09, 2017 11:28
[2017-02-09] MEDS ORDERED: clonazePAM 0.5 MG TAB PO PRN (12:30)
--- NOTE | 2017-02-09 12:36 | HHI.PR ---
Subjective Remarks f/u for right hip fracture. patient stated pain no controlled, 06/07. He stated he takes more than Tylenol for his chronic pain. patient stated he trip over his walker. denied any LANGLEY, N/V or visual changes. Objective Vitals Vital Signs Date Time Temp Pulse Resp B/P Pulse Ox O2 Delivery O2 Flow Rate FiO2 02/09/17 11:58 97.4 89 20 180/74 94 02/09/17 09:10 Room Air 02/09/17 08:00 98.1 61 16 187/73 92 02/09/17 02:31 98 Room Air 02/09/17 02:02 98.2 63 16 158/72 98 02/09/17 00:30 88 16 118/60 98 Room Air 02/08/17 21:40 70 16 137/62 98 Room Air 02/08/17 19:45 98.4 72 16 152/76 93 Room Air 02/08/17 18:27 75 15 162/68 96 02/08/17 13:56 70 15 186/80 92 I/O 02/08/17 02/08/17 02/08/17 02/09/17 02/09/17 02/09/17 07:00 15:00 23:00 07:00 15:00 23:00 Intake Total 250 ml 339 ml 483 ml Output Total 300 ml Balance 250 ml 39 ml 483 ml Intake Oral 250 ml 0 ml IV Total 339 ml 483 ml Output Urine Total 300 ml # Voids 1 # Bowel Movements 0 Result Diagram: 02/08/17 1139 02/09/17 0550 Objective Remarks GENERAL: in NAD CARDIOVASCULAR: Regular rate and rhythm without murmurs, gallops, or rubs. +1 DP pulses B/L RESPIRATORY: Breath sounds equal bilaterally. No accessory muscle use. GASTROINTESTINAL: Abdomen soft, non-tender, nondistended. MUSCULOSKELETAL:no ROM of right hip but sensation intact. ext warm BACK: Nontender without obvious deformity. No CVA tenderness. SKIN: abrasion on forehead. Medications and IVs Current Medications Morphine Sulfate (Morphine Inj) 4 mg ONCE ONCE IV PUSH Last administered on 13:54; Start 02/08/17 at 13:45; Stop 02/08/17 at 13:46; Status DC Ondansetron HCl 4 mg 4 mg ONCE ONCE IV PUSH Last administered on 02/08/17 13: 53; Start 02/08/17 at 13:45; Stop 02/08/17 at 13:46; Status DC Sodium Chloride (NS 1000 ml Inj) 1,000 ml @ 70 mls/hr [id number] IV Last administered on 02/09/17 05:22; Start 02/08/17 at 15:00 IV Flush (NS Flush) 2 ml UNSCH PRN FLUSH FLUSH AFTER USING IV ACCESS; Start at 14:00 IV Flush (NS Flush) 2 ml BID FLUSH Last administered on 02/08/17 21:32; Start 02/08/17 at 21:00 Acetaminophen (Tylenol) 650 mg Q4H PRN PO TEMP > 100.4; Start 02/08/17 at 14:00 Ondansetron HCl (Zofran Inj) 4 mg Q6H PRN IVP NAUSEA OR VOMITING; Start at 14:00 Acetaminophen (Tylenol) 650 mg Q6H PRN PO PAIN SCALE 1 TO 2 Last administered on 02/09/17 09:05; Start 02/08/17 at 14:00 Naloxone HCl (Narcan Inj) 0.4 mg UNSCH PRN IV SEE LABEL COMMENTS; Start at 14:00 Albuterol/ Ipratropium (Duoneb Neb) 1 ampule Q2HR NEB PRN NEB SOB/WHEEZING; Start 02/08/17 at 16:30 Enalaprilat (Vasotec Inj) 1.25 mg Q6H PRN IV PUSH SBP>160, DBP>90; Start 02/08 at 16:30 Donepezil HCl (Aricept) 10 mg HS PO Last administered on 02/08/17 21:19; Start 02/08/17 at 21:00 Dorzolamide HCl (Trusopt 2% Opt Soln) 1 drop BID EACH EYE Last administered on 02/09/17 09:00; Start 02/08/17 at 21:00 Levothyroxine Sodium (Synthroid) 50 mcg DAILY@06 PO Last administered on 05:22; Start 02/09/17 at 06:00 Losartan Potassium (Cozaar) 75 mg BID PO Last administered on 02/09/17 09:06; Start 02/08/17 at 21:00 Memantine (Namenda) 10 mg BID PO Last administered on 02/08/17 21:19; Start at 21:00 Metoprolol Tartrate (Lopressor) 25 mg BID PO Last administered on 02/09/17 09: 05; Start 02/08/17 at 21:00 Pravastatin Sodium (Pravachol) 80 mg DAILY PO Last administered on 02/09/17 09 :03; Start 02/09/17 at 09:00 Dextrose (D50w (Vial) Inj) 25 ml UNSCH PRN IV PUSH HYPOGLYCEMIA-SEE COMMENTS; Start 02/08/17 at 16:30 Glucagon (Glucagon Inj) 1 mg UNSCH PRN OTHER HYPOGLYCEMIA-SEE COMMENTS; Start 02/08/17 at 16:30 Insulin Aspart (NovoLOG SUPPLEMENTAL SCALE) 1 ACHS SLIDING SCALE SQ Last administered on 02/08/17 21:31; Start 02/08/17 at 21:00 Miscellaneous 1 ea 1 ea UNSCH PRN OTHER SEE LABEL COMMENTS; Start 02/08/17 at 16:30 Lactated Ringer's 1,000 ml @ 30 mls/hr Q24H IV Last administered on 02/09/17 01:45; Start 02/09/17 at 01:45 Sodium Chloride (NS 500 ml Inj) 500 ml @ 30 mls/hr [id number] IV ; Start 02/09/17 at 01:45; Stop 02/10/17 at 01:44 Insulin Human Regular (NovoLIN R INJ) See Protocol Table ... UNSCH X1 PRN SQ SEE PROTOCOL; Start 02/09/17 at 01:45; Stop 02/10/17 at 01:44 Acetaminophen/ Hydrocodone Bitart ([place] 5-325 Mg) 1 tab Q4H PRN PO pain 6-10 ; Start 02/09/17 at 12:30 Aspirin (Aspirin Chew) 81 mg DAILY CHEW ; Start 02/10/17 at 09:00 Buspirone HCl (Buspar) 5 mg TID PO ; Start 02/09/17 at 13:00 Clonazepam (KlonoPIN) 0.5 mg BID PRN PO AGITATION; Start 02/09/17 at 12:30 Escitalopram Oxalate (Lexapro) 10 mg DAILY PO ; Start 02/10/17 at 09:00 Folic Acid (Folate) 0.4 mg DAILY PO ; Start 02/10/17 at 09:00; Status UNV Hydrochlorothiazide (Hydrodiuril) 25 mg DAILY PO ; Start 02/10/17 at 09:00 Metformin HCl (Glucophage) 1,000 mg BIDPC PO ; Start 02/09/17 at 18:00 Morphine Sulfate (Oramorph Sr) 30 mg BID PO ; Start 02/09/17 at 21:00 Potassium Chloride (KCl) 10 meq DAILY PO ; Start 02/10/17 at 09:00 Magnesium Oxide (Mag-Ox) 400 mg BID PO ; Start 02/09/17 at 21:00 Non-Formulary Medication 1 gm BID PO INF; Start 02/09/17 at 21:00; Status UNV Insulin Glargine (Lantus Inj) 26 units HS SQ ; Start 02/09/17 at 21:00; Stop at 21:00; Status DC A/P Problem List: (1) Intertrochanteric fracture of right hip ICD Code: S72.141A Status: Acute Assessment and Plan 86-year-old man with Intertrochanteric fracture of the right hip: -s/p Mechanical fall. - CT pelvic/abdomen noted and review with finding of acute fracture of the right fracture. -ortho saw patient and recommend conservative management with pain control , no ROM of right hip, and NWB FLE. Mechanical fall - Head CT noted and reviewed without any acute finding.UA negative. Fall precaution. Leukocytosis - UA negative and CXR without any acute finding DM2 -continue to hold lantus as well as Oral hypoglycemic agent. -on ISS with [facility] monitoring HLP, dementia continue outpatient medications DVT prophylaxis: B-SCD Discharge Planning d/c to per rec of PT and once pain controlled. Problem Qualifiers (1) Intertrochanteric fracture of right hip: Qualified Code: S72.141A - Intertrochanteric fracture of right hip, closed, initial encounter Elle Lopez MD Feb 09, 2017 12:36
[2017-02-09] MEDS: busPIRone HCL 5 MG TAB PO SCH ×2 (12:53→16:27)
[2017-02-09] MEDS: ACETAMINOPHEN/HYDROcodone 325 MG/5 MG TAB PO PRN ×2 (12:54→16:27)
--- NOTE | 2017-02-09 15:04 | EKG ---
Date Performed: 02/09/2017 Time Performed: 02:59:28 PTAGE: 86 years EKG: Sinus rhythm Leftward axis Inferior T wave changes are nonspecific Compared to prior tracing no significant oliveros e Borderline ECG PREVIOUS TRACING 04/27/2014@20.11.52 DOCTOR: Rufus Obrien Interpretating Date/Time 02/09/2017 15:02:40
[2017-02-09] MEDS: metFORMIN HCL 500 MG TAB PO SCH (16:28)
[2017-02-09] MEDS: MORPHINE SULFATE 30 MG CONTROLLED RELEASE TAB PO SCH (20:47)
[2017-02-09] MEDS: MAGNESIUM OXIDE 400 MG TAB PO SCH (20:48)
[2017-02-09] MEDS: DONEPEZIL HCL 5 MG TAB PO SCH (20:48)
[2017-02-09] MEDS ORDERED: INSULIN GLARGINE 1,000 UNITS/10 ML VIAL SQ SCH (21:00)
[2017-02-09] MEDS ORDERED: METHENAMINE HIPPURATE 1 GM PO SCH (21:00)
--- NOTE | 2017-02-09 23:05 | PD.CONS ---
cc: Prasanna Posadas Jr., MD HPI Service Orthopedic Surgeons Consult Requested By Primary Care Physician Non-Staff Admission Diagnosis right intertrochanteric fracture, mechanical fall Diagnoses: (1) Intertrochanteric fracture of right hip Chief Complaint: right hip pain History of Present Illness 86-year-old male with a history of diabetes type 2, hyperlipidemia was brought to the ED from local [facility] for evaluation of right hip pain 4 days s/ p fall. Initial x-rays at outside facility was negative. Recurrent fall last night during which it is head possible loss of consciousness. He isn't sure if he fell on the RIGHT hip. However the RIGHT hip pain progressively worsened. Pain is 6 out of 10, exacerbated by range of motion and abduction, relieved by rest, not associated with radiation of pain or neurologic symptoms. Patient does have a history of dementia and is a very poor historian. denies chest pain or shortness of breath. Review of Systems Other 12 systems reviewed and are negative except for the ones mentioned in history of present illness PFSH Past Family Social History Past Medical History Cancer: Yes (RT KIDNEY CA-REMOVED.) High Cholesterol: Yes Cerebrovascular Accident: Yes (POSSIBLE TIA 20 YRS AGO) Diabetes: Yes (type II) Diminished Hearing: Yes (PO[place]) Glaucoma: Yes Hypertension: Yes Immunizations Current: Yes Thyroid Disease: Yes (hypo) Past Surgical History Cholecystectomy: Yes Genitourinary Surgery: Yes (RT NEPHRECTOMY 2006) Joint Replacement: Yes (LEFT KNEE- osteotomy) Other Surgery: Yes (RT URETER CANCER) Reported Medications Hydrocodone-Acetaminophen 5-325 mg Tab 1 Tab PO Q4H PRN Clonazepam 0.5 Mg Tab 0.5 Mg PO BID PRN Vitamin D-3 (Cholecalciferol) 2,000 Unit Tab Zocor (Simvastatin) 40 Mg Tab 40 Mg PO DAILY Senna Lax (Sennosides) 8.6 Mg Tab Morphine ER (Morphine Sulfate) 30 Mg Tab 30 Mg PO BID Metoprolol Tartrate 25 Mg Tab 25 Mg PO BID Methenamine Hippurate 1 Gm Tab 1 Gm PO BID Metformin (Metformin HCl) 1,000 Mg Tab 1,000 Mg PO BIDPC With meals Memantine 10 Mg Tab 10 Mg PO BID Magnesium Oxide 250 Mg Tab 250 Mg PO BID Losartan (Losartan Potassium) 50 Mg Tab 75 Mg PO BID Levothyroxine (Levothyroxine Sodium) 50 Mcg Tab 50 Mcg PO DAILY Lantus Inj (Insulin Glargine) 100 Unit/Ml Inj 26 Units SQ HS Klor-Con 10 (Potassium Chloride) 10 Meq Tab 10 Meq PO DAILY Hydrochlorothiazide 25 Mg Tab 25 Mg PO DAILY Folic Acid 400 Mcg Tab 400 Mcg PO DAILY Escitalopram (Escitalopram Oxalate) 10 Mg Tab 10 Mg PO DAILY Dorzolamide Opth Drops (Dorzolamide HCl) 2% Soln 1 Drop EACH EYE BID Donepezil 10 Mg Tab 10 Mg PO HS Buspirone (Buspirone HCl) 5 Mg Tab 5 Mg PO TID Aspirin 81 Mg Chew 81 Mg CHEW DAILY Allergies: Coded Allergies: Visipaque (Verified Allergy, Severe, Hives, 02/08/17) Codeine (Verified Adverse Reaction, Intermediate, Nausea/Vomiting, 02/08/17 ) Family History Secondary to patient's age, family history not relevant for this case Social History Alcohol Use: No Tobacco Use: No Substance Use: No Past Family Social History Past Medical History Cancer: Yes (RT KIDNEY CA-REMOVED.) High Cholesterol: Yes Cerebrovascular Accident: Yes (POSSIBLE TIA 20 YRS AGO) Diabetes: Yes (type II) Diminished Hearing: Yes ([place]) Glaucoma: Yes Hypertension: Yes Immunizations Current: Yes Thyroid Disease: Yes (hypo) Past Surgical History Cholecystectomy: Yes Genitourinary Surgery: Yes (RT NEPHRECTOMY 2006) Joint Replacement: Yes (LEFT KNEE- osteotomy) Other Surgery: Yes (RT URETER CANCER) Allergies: Coded Allergies: Visipaque (Verified Allergy, Severe, Hives, 02/08/17) Codeine (Verified Adverse Reaction, Intermediate, Nausea/Vomiting, 02/08/17 ) Active Ordered Medications Current Medications Medications (Trade) Dose Ordered Sig/[place] Route Start Time Stop Time Status Last Admin (NS 1000 ml Inj) 1,000 ml @ 70 mls/hr [id number] IV 02/08/17 15:00 02/09/17 16:28 (NS Flush) 2 ml UNSCH PRN FLUSH 02/08/17 14:00 (NS Flush) 2 ml BID FLUSH 02/08/17 21:00 02/08/17 21:32 (Tylenol) 650 mg Q4H PRN PO 02/08/17 14:00 (Zofran Inj) 4 mg Q6H PRN IVP 02/08/17 14:00 (Tylenol) 650 mg Q6H PRN PO 02/08/17 14:00 02/09/17 09:05 (Narcan Inj) 0.4 mg UNSCH PRN IV 02/08/17 14:00 (Vasotec Inj) 1.25 mg Q6H PRN IV PUSH 02/08/17 16:30 (Aricept) 10 mg HS PO 02/08/17 21:00 02/09/17 20:48 (Trusopt 2% Opth Soln) 1 drop BID EACH EYE 02/08/17 21:00 02/09/17 21:49 (Synthroid) 50 mcg DAILY@06 PO 02/09/17 06:00 02/09/17 05:22 (Cozaar) 75 mg BID PO 02/08/17 21:00 02/09/17 20:49 (Namenda) 10 mg BID PO 02/08/17 21:00 02/09/17 20:48 (Lopressor) 25 mg BID PO 02/08/17 21:00 02/09/17 20:49 (Pravachol) 80 mg DAILY PO 02/09/17 09:00 02/09/17 09:03 (D50w (Vial) Inj) 25 ml UNSCH PRN IV PUSH 02/08/17 16:30 (Glucagon Inj) 1 mg UNSCH PRN OTHER 02/08/17 16:30 Miscellaneous 1 ea 1 ea UNSCH PRN OTHER 02/08/17 16:30 Lactated Ringer's 1,000 ml @ 30 mls/hr Q24H IV 02/09/17 01:45 02/09/17 01:45 (NS 500 ml Inj) 500 ml @ 30 mls/hr [id number] IV 02/09/17 01:45 02/10/17 01:44 ([place] 5-325 Mg) 1 tab Q4H PRN PO 02/09/17 12:30 02/09/17 16:27 (Aspirin Chew) 81 mg DAILY CHEW 02/10/17 09:00 (Buspar) 5 mg TID PO 02/09/17 13:00 02/09/17 16:27 (KlonoPIN) 0.5 mg BID PRN PO 02/09/17 12:30 02/09/17 21:54 (Lexapro) 10 mg DAILY PO 02/10/17 09:00 (Folate) 1 mg DAILY PO 02/10/17 09:00 (Hydrodiuril) 25 mg DAILY PO 02/10/17 09:00 (Glucophage) 1,000 mg BIDPC PO 02/09/17 18:00 02/09/17 16:28 (Oramorph Sr) 30 mg BID PO 02/09/17 21:00 02/09/17 20:47 (KCl) 10 meq DAILY PO 02/10/17 09:00 (Mag-Ox) 400 mg BID PO 02/09/17 21:00 02/09/17 20:48 Patient Own Medication PT OWN MED: METHENAM... BID PO 02/09/17 21:00 Hold Reported Meds & Active Scripts Active Reported Hydrocodone-Acetaminophen 5-325 mg Tab 1 Tab PO Q4H PRN Clonazepam 0.5 Mg Tab 0.5 Mg PO BID PRN Vitamin D-3 (Cholecalciferol) 2,000 Unit Tab Zocor (Simvastatin) 40 Mg Tab 40 Mg PO DAILY Senna Lax (Sennosides) 8.6 Mg Tab Morphine ER (Morphine Sulfate) 30 Mg Tab 30 Mg PO BID Metoprolol Tartrate 25 Mg Tab 25 Mg PO BID Methenamine Hippurate 1 Gm Tab 1 Gm PO BID Metformin (Metformin HCl) 1,000 Mg Tab 1,000 Mg PO BIDPC With meals Memantine 10 Mg Tab 10 Mg PO BID Magnesium Oxide 250 Mg Tab 250 Mg PO BID Losartan (Losartan Potassium) 50 Mg Tab 75 Mg PO BID Levothyroxine (Levothyroxine Sodium) 50 Mcg Tab 50 Mcg PO DAILY Lantus Inj (Insulin Glargine) 100 Unit/Ml Inj 26 Units SQ HS Klor-Con 10 (Potassium Chloride) 10 Meq Tab 10 Meq PO DAILY Hydrochlorothiazide 25 Mg Tab 25 Mg PO DAILY Folic Acid 400 Mcg Tab 400 Mcg PO DAILY Escitalopram (Escitalopram Oxalate) 10 Mg Tab 10 Mg PO DAILY Dorzolamide Opth Drops (Dorzolamide HCl) 2% Soln 1 Drop EACH EYE BID Donepezil 10 Mg Tab 10 Mg PO HS Buspirone (Buspirone HCl) 5 Mg Tab 5 Mg PO TID Aspirin 81 Mg Chew 81 Mg CHEW DAILY Family History Secondary to patient's age, family history not relevant for this case Social History Alcohol Use: No Tobacco Use: No Substance Use: No Physical Exam Vital Signs Vital Signs Date Time Temp Pulse Resp B/P Pulse Ox O2 Delivery O2 Flow Rate FiO2 02/09/17 15:43 97.5 65 20 171/73 98 02/09/17 11:58 97.4 89 20 180/74 94 02/09/17 09:10 Room Air 02/09/17 08:00 98.1 61 16 187/73 92 02/09/17 02:31 98 Room Air 02/09/17 02:02 98.2 63 16 158/72 98 02/09/17 00:30 88 16 118/60 98 Room Air Physical Exam Head: Neck normocephalic atraumatic. Trachea midline. Pulmonary: normal respiratory effort. Abdomen: soft nontender Musculoskeletal exam bilateral upper extremity- grossly neurovascularly intact. no deformities Right lower extremity- grossly neurovascular intact. TTP at the GT region, good hip ROM. painful hip abduction, No deformities. Intact sensation distally. 2+ palpable dorsalis pedis and posterior tibial pulses. Soft compartments. Negative Homans. Laboratory Laboratory Tests Test 02/09/17 05:50 Prothrombin Time 11.6 Prothromb Time International 1.0 Ratio Sodium Level 146 Potassium Level 3.4 Chloride Level 105 Carbon Dioxide Level 29.8 Anion Gap 11 Blood Urea Nitrogen 32 Creatinine 0.83 Estimat Glomerular Filtration 88 Rate Random Glucose 72 Calcium Level 7.9 Total Bilirubin 0.5 Aspartate Amino Transf 19 (AST/SGOT) Alanine Aminotransferase 20 (ALT/SGPT) Alkaline Phosphatase 49 Total Protein 5.5 Albumin 2.4 Blood Type A POSITIVE Antibody Screen NEGATIVE Result Diagram: 02/08/17 1139 02/09/17 0550 Imaging Last [address] 02/08/17 0000 Signed Impressions: Service Date/Time: Wednesday, February 08, 2017 14:29 - CONCLUSION: Acute fracture of the greater trochanter of the right hip. There is associated hematoma formation as detailed above. Left hip is intact. Marin Ledbetter Jr., MD Hip and Pelvis X-Ray 02/08/17 0000 Signed Impressions: Service Date/Time: Wednesday, February 08, 2017 11:21 - CONCLUSION: Intertrochanteric fracture with avulsion of the greater trochanter is noted. Intact pelvis and left hip. Enoc Dunbar MD Head CT 02/08/17 0000 Signed Impressions: Service Date/Time: Wednesday, February 08, 2017 12:18 - CONCLUSION: Aging brain with atrophic changes and chronic white matter disease. No evidence of acute infarct, hemorrhage, mass, edema or interval change. Enoc Dunbar MD Chest X-Ray 02/08/17 0000 Signed Impressions: Service Date/Time: Wednesday, February 08, 2017 11:59 - CONCLUSION: No acute disease. Enoc Dunbar MD Assessment & Plan Assessment and Plan 86-year-old male status post fall, about 4 days ago, sustaining injury to her RIGHT hip. initial x-ray examination revealed a trochanter fracture with possible fracture extending to the intertrochanteric line. CT revealed no intertrochanteric fracture with only a fracture of the greater trochanter. he is neurovascularly intact with tenderness to palpation around the greater trochanter. We'll treat this injury nonoperatively. NWB RIGHT lower extremity. Physical therapy- out of bed with gait and balance training with a walker. I discussed my treatment plans as well as risks, benefits and alternatives of surgical Intervention versus nonoperative treatment. All questions were answered. Thank you for consult. Please call with questions. Prasanna Posadas Jr., MD Feb 09, 2017 23:05
[2017-02-10] MEDS: LACTATED RINGER'S 1000 ML IV SCH ×2 (01:45→21:36)
[2017-02-10 04:48] LABS: HEMATOCRIT 25.5 % (39.0-51.0); MEAN CELL VOLUME 86.2 FL (80.0-100.0); MEAN CORPUSCULAR HEMOGLOBIN 29.2 PG (27.0-34.0); MEAN CORPUSCULAR HGB CONC 33.8 % (32.0-36.0); PLATELET COUNT 150 TH/MM3 (150-450); RED BLOOD COUNT 2.96 MIL/MM3 (4.50-5.90); RED CELL DISTRIBUTION WIDTH 14.5 % (11.6-17.2); REVIEW FLAG FINAL
[2017-02-10 05:18] LABS: BICARBONATE 28.2 MEQ/L (21.0-32.0); POTASSIUM 3.6 MEQ/L (3.5-5.1)
[2017-02-10] MEDS: INSULIN ASPART SUPPLEMENTAL SCALE SQ SCH ×4 (06:19→21:00)
[2017-02-10] MEDS: LEVOTHYROXINE SODIUM 50 MCG TAB PO SCH (06:19)
[2017-02-10 08:00] VITALS: BP 160/69; PULSE 52; RESP 20; TEMP 98.7; O2SAT 98
[2017-02-10] MEDS: LOSARTAN 50 MG TAB PO SCH ×2 (08:27→21:23)
[2017-02-10] MEDS: busPIRone HCL 5 MG TAB PO SCH ×3 (08:29→19:06)
[2017-02-10] MEDS: ESCITALOPRAM OXALATE 10 MG TAB PO SCH (08:30)
[2017-02-10] MEDS: MEMANTINE HCL 10 MG TAB PO SCH ×2 (08:30→21:23)
[2017-02-10] MEDS: metFORMIN HCL 500 MG TAB PO SCH ×2 (08:30→19:06)
[2017-02-10] MEDS: ASPIRIN 81 MG CHEW TAB CHEW SCH (08:31)
[2017-02-10] MEDS: METOPROLOL TARTRATE 25 MG TAB PO SCH ×2 (08:31→21:23)
[2017-02-10] MEDS: MORPHINE SULFATE 30 MG CONTROLLED RELEASE TAB PO SCH ×2 (08:32→21:23)
[2017-02-10] MEDS: MAGNESIUM OXIDE 400 MG TAB PO SCH ×2 (08:32→21:24)
[2017-02-10] MEDS: PRAVASTATIN SOD 40 MG TAB PO SCH (08:33)
[2017-02-10] MEDS: FOLIC ACID 1 MG TAB PO SCH (08:34)
[2017-02-10] MEDS: ACETAMINOPHEN/HYDROcodone 325 MG/5 MG TAB PO PRN ×2 (08:34→23:26)
[2017-02-10] MEDS: HYDROCHLOROTHIAZIDE 25 MG TAB PO SCH (08:34)
[2017-02-10] MEDS: POTASSIUM CHLORIDE 10 MEQ CONTROLLED RELEASE TAB PO SCH (08:35)
[2017-02-10] MEDS: SODIUM CHLORIDE 0.9% FLUSH 5 ML FLUSH FLUSH SCH ×2 (08:36→21:00)
[2017-02-10] MEDS: DORZOLAMIDE 2% OPTH SOLN 200 DROP/10 ML BTLO EACH EYE SCH ×2 (08:37→21:25)
[2017-02-10] MEDS: SODIUM CHLOR 0.9% 1000 ML INJ 1,000 ML IV SCH ×2 (09:54→21:36)
[2017-02-10 12:50] VITALS: BP 111/62; PULSE 57; RESP 20; TEMP 97.3; O2SAT 99
[2017-02-10 17:00] VITALS: BP 203/83; PULSE 60; RESP 20; TEMP 97.2; O2SAT 98
--- NOTE | 2017-02-10 17:25 | HHI.PR ---
Subjective Remarks f/u for right hip fracture. patient stated pain is controlled. He has no complaints. Tolerating PO intake. Denied any N/V. Objective Vitals Vital Signs Date Time Temp Pulse Resp B/P Pulse Ox O2 Delivery O2 Flow Rate FiO2 02/10/17 12:50 97.3 57 20 111/62 99 02/10/17 08:00 98.7 52 20 160/69 98 02/10/17 07:20 Room Air 02/09/17 23:35 98.8 71 19 157/64 94 02/09/17 20:20 98.5 63 17 187/74 96 02/09/17 20:00 96 Room Air I/O 02/09/17 02/09/17 02/09/17 02/10/17 02/10/17 02/10/17 07:00 15:00 23:00 07:00 15:00 23:00 Intake Total 339 ml 723 ml 240 ml 120 ml Output Total 300 ml Balance 39 ml 723 ml 240 ml 120 ml Intake Oral 0 ml 240 ml 240 ml 120 ml IV Total 339 ml 483 ml Output Urine Total 300 ml # Voids 2 2 3 # Bowel Movements 0 2 2 0 Result Diagram: 02/10/17 0359 02/10/17 0359 Objective Remarks GENERAL: in NAD CARDIOVASCULAR: Regular rate and rhythm without murmurs, gallops, or rubs. +1 DP pulses B/L RESPIRATORY: Breath sounds equal bilaterally. No accessory muscle use. GASTROINTESTINAL: Abdomen soft, non-tender, nondistended. MUSCULOSKELETAL: ROM of right hip limited due to fracture but sensation intact. ext warm BACK: Nontender without obvious deformity. No CVA tenderness. SKIN: abrasion on forehead. Medications and IVs Current Medications Morphine Sulfate (Morphine Inj) 4 mg ONCE ONCE IV PUSH Last administered on 13:54; Start 02/08/17 at 13:45; Stop 02/08/17 at 13:46; Status DC Ondansetron HCl 4 mg 4 mg ONCE ONCE IV PUSH Last administered on 02/08/17 13: 53; Start 02/08/17 at 13:45; Stop 02/08/17 at 13:46; Status DC Sodium Chloride (NS 1000 ml Inj) 1,000 ml @ 70 mls/hr [id number] IV Last administered on 02/09/17 16:28; Start 02/08/17 at 15:00 IV Flush (NS Flush) 2 ml UNSCH PRN FLUSH FLUSH AFTER USING IV ACCESS; Start at 14:00 IV Flush (NS Flush) 2 ml BID FLUSH Last administered on 02/10/17 08:36; Start 02/08/17 at 21:00 Acetaminophen (Tylenol) 650 mg Q4H PRN PO TEMP > 100.4; Start 02/08/17 at 14:00 Ondansetron HCl (Zofran Inj) 4 mg Q6H PRN IVP NAUSEA OR VOMITING; Start at 14:00 Acetaminophen (Tylenol) 650 mg Q6H PRN PO PAIN SCALE 1 TO 2 Last administered on 02/09/17 09:05; Start 02/08/17 at 14:00 Naloxone HCl (Narcan Inj) 0.4 mg UNSCH PRN IV SEE LABEL COMMENTS; Start at 14:00 Albuterol/ Ipratropium (Duoneb Neb) 1 ampule Q2HR NEB PRN NEB SOB/WHEEZING; Start 02/08/17 at 16:30 Enalaprilat (Vasotec Inj) 1.25 mg Q6H PRN IV PUSH SBP>160, DBP>90; Start 02/08 at 16:30 Donepezil HCl (Aricept) 10 mg HS PO Last administered on 02/09/17 20:48; Start 02/08/17 at 21:00 Dorzolamide HCl (Trusopt 2% Opt Soln) 1 drop BID EACH EYE Last administered on 02/10/17 08:37; Start 02/08/17 at 21:00 Levothyroxine Sodium (Synthroid) 50 mcg DAILY@06 PO Last administered on 06:19; Start 02/09/17 at 06:00 Losartan Potassium (Cozaar) 75 mg BID PO Last administered on 02/10/17 08:27; Start 02/08/17 at 21:00 Memantine (Namenda) 10 mg BID PO Last administered on 02/10/17 08:30; Start at 21:00 Metoprolol Tartrate (Lopressor) 25 mg BID PO Last administered on 02/10/17 08: 31; Start 02/08/17 at 21:00 Pravastatin Sodium (Pravachol) 80 mg DAILY PO Last administered on 02/10/17 08 :33; Start 02/09/17 at 09:00 Dextrose (D50w (Vial) Inj) 25 ml UNSCH PRN IV PUSH HYPOGLYCEMIA-SEE COMMENTS; Start 02/08/17 at 16:30 Glucagon (Glucagon Inj) 1 mg UNSCH PRN OTHER HYPOGLYCEMIA-SEE COMMENTS; Start 02/08/17 at 16:30 Insulin Aspart (NovoLOG SUPPLEMENTAL SCALE) 1 ACHS SLIDING SCALE SQ Last administered on 02/10/17 16:13; Start 02/08/17 at 21:00 Miscellaneous 1 ea 1 ea UNSCH PRN OTHER SEE LABEL COMMENTS; Start 02/08/17 at 16:30 Lactated Ringer's 1,000 ml @ 30 mls/hr Q24H IV Last administered on 02/09/17 01:45; Start 02/09/17 at 01:45 Sodium Chloride (NS 500 ml Inj) 500 ml @ 30 mls/hr [id number] IV ; Start 02/09/17 at 01:45; Stop 02/10/17 at 01:44; Status DC Insulin Human Regular (NovoLIN R INJ) See Protocol Table ... UNSCH X1 PRN SQ SEE PROTOCOL; Start 02/09/17 at 01:45; Stop 02/10/17 at 01:44; Status DC Acetaminophen/ Hydrocodone Bitart ([place] 5-325 Mg) 1 tab Q4H PRN PO pain 6-10 Last administered on 02/10/17 08:34; Start 02/09/17 at 12:30 Aspirin (Aspirin Chew) 81 mg DAILY CHEW Last administered on 02/10/17 08:31; Start 02/10/17 at 09:00 Buspirone HCl (Buspar) 5 mg TID PO Last administered on 02/10/17 11:18; Start 02/09/17 at 13:00 Clonazepam (KlonoPIN) 0.5 mg BID PRN PO AGITATION Last administered on 21:54; Start 02/09/17 at 12:30 Escitalopram Oxalate (Lexapro) 10 mg DAILY PO Last administered on 02/10/17 08 :30; Start 02/10/17 at 09:00 Folic Acid (Folate) 1 mg DAILY PO Last administered on 02/10/17 08:34; Start 02/10/17 at 09:00 Hydrochlorothiazide (Hydrodiuril) 25 mg DAILY PO Last administered on 08:34; Start 02/10/17 at 09:00 Metformin HCl (Glucophage) 1,000 mg BIDPC PO Last administered on 02/10/17 08: 30; Start 02/09/17 at 18:00 Morphine Sulfate (Oramorph Sr) 30 mg BID PO Last administered on 02/10/17 08: 32; Start 02/09/17 at 21:00 Potassium Chloride (KCl) 10 meq DAILY PO Last administered on 02/10/17 08:35; Start 02/10/17 at 09:00 Magnesium Oxide (Mag-Ox) 400 mg BID PO Last administered on 02/10/17 08:32; Start 02/09/17 at 21:00 Patient Own Medication PT OWN MED: METHENAM... BID PO ; Start 02/09/17 at 21:00 ; Status Hold Insulin Glargine (Lantus Inj) 26 units HS SQ ; Start 02/09/17 at 21:00; Stop at 21:00; Status DC A/P Problem List: (1) Intertrochanteric fracture of right hip ICD Code: S72.141A Status: Acute Assessment and Plan 86-year-old man with Intertrochanteric fracture of the right hip: -s/p Mechanical fall. - CT pelvic/abdomen noted and review with finding of acute fracture of the right fracture. -ortho saw patient and recommend conservative management with pain control , no ROM of right hip, and NWB FLE. Mechanical fall - Head CT noted and reviewed without any acute finding.UA negative. Fall precaution. Leukocytosis -RESOLVED. - UA negative and CXR without any acute finding DM2 -on Lantus at home but due to hypoglycemia it was held. -Today BS in 200s so will restart Lantus. -on ISS with [facility] monitoring HLP, dementia continue outpatient medications DVT prophylaxis: B-SCD Discharge Planning Patient stable for discharge to SNF tomorrow. d/w case management. Problem Qualifiers (1) Intertrochanteric fracture of right hip: Qualified Code: S72.141A - Intertrochanteric fracture of right hip, closed, initial encounter Elle Lopez MD Feb 10, 2017 17:25
[2017-02-10 20:00] VITALS: BP 181/84; PULSE 65; RESP 16; TEMP 98.6; O2SAT 94
[2017-02-10] MEDS ORDERED: INSULIN DETEMIR 100 UNITS/ML VIAL SQ SCH (21:00)
[2017-02-10] MEDS: DONEPEZIL HCL 5 MG TAB PO SCH (21:23)
[2017-02-11] VITALS: BP 146/72; PULSE 72; RESP 16; TEMP 98.3; O2SAT 96
[2017-02-11 04:00] VITALS: BP 137/65; PULSE 66; RESP 16; TEMP 97.2; O2SAT 98
[2017-02-11] MEDS: LEVOTHYROXINE SODIUM 50 MCG TAB PO SCH (07:52)
[2017-02-11] MEDS: INSULIN ASPART SUPPLEMENTAL SCALE SQ SCH ×2 (07:52→11:00)
[2017-02-11 08:14] VITALS: BP 143/69; PULSE 54; RESP 16; TEMP 98; O2SAT 98
[2017-02-11] MEDS: LOSARTAN 50 MG TAB PO SCH (10:37)
[2017-02-11] MEDS: HYDROCHLOROTHIAZIDE 25 MG TAB PO SCH (10:38)
[2017-02-11] MEDS: FOLIC ACID 1 MG TAB PO SCH (10:38)
[2017-02-11] MEDS: metFORMIN HCL 500 MG TAB PO SCH (10:38)
[2017-02-11] MEDS: PRAVASTATIN SOD 40 MG TAB PO SCH (10:39)
[2017-02-11] MEDS: ASPIRIN 81 MG CHEW TAB CHEW SCH (10:39)
[2017-02-11] MEDS: MORPHINE SULFATE 30 MG CONTROLLED RELEASE TAB PO SCH (10:39)
[2017-02-11] MEDS: MAGNESIUM OXIDE 400 MG TAB PO SCH (10:39)
[2017-02-11] MEDS: ESCITALOPRAM OXALATE 10 MG TAB PO SCH (10:39)
[2017-02-11] MEDS: MEMANTINE HCL 10 MG TAB PO SCH (10:39)
[2017-02-11] MEDS: POTASSIUM CHLORIDE 10 MEQ CONTROLLED RELEASE TAB PO SCH (10:40)
[2017-02-11] MEDS: busPIRone HCL 5 MG TAB PO SCH ×2 (10:40→13:42)
[2017-02-11] MEDS: METOPROLOL TARTRATE 25 MG TAB PO SCH (10:40)
[2017-02-11] MEDS: SODIUM CHLORIDE 0.9% FLUSH 5 ML FLUSH FLUSH SCH (10:40)
[2017-02-11] MEDS: DORZOLAMIDE 2% OPTH SOLN 200 DROP/10 ML BTLO EACH EYE SCH (10:41)
[2017-02-11] MEDS ORDERED: HYDR-3516 PO (12:00)
[2017-02-11] MEDS ORDERED: MORP1TAB25 PO (12:00)
[2017-02-11] MEDS ORDERED: CLON0.5T PO (12:00)
--- NOTE | 2017-02-11 12:01 | HHI.DCPOC ---
Discharge Care Plan Diagnosis: (1) Closed fracture of distal fibula (2) Intertrochanteric fracture of right hip Goals to Promote Your Health * To prevent worsening of your condition and complications * To maintain your health at the optimal level Directions to Meet Your Goals Take your medications as prescribed Follow your dietary instruction Follow activity as directed Keep your appointments as scheduled Take your immunizations and boosters as scheduled If your symptoms worsen call your PCP, if no PCP go to Urgent Care Center or Emergency Room Smoking is Dangerous to Your Health. Avoid second hand smoke Call the 24-hour hour crisis hotline for domestic abuse at Molly Rene MD Feb 11, 2017 12:01
--- NOTE | 2017-02-11 12:08 | HHI.DS ---
Discharge Summary Admission Date Feb 08, 2017 at 12:46 Discharge Date: Feb 11, 2017 Admitting Diagnosis right intertrochanteric fracture, mechanical fall (1) Intertrochanteric fracture of right hip ICD Code: S72.141A Procedures none Brief History - From Admission 86-year-old male with a history of diabetes type 2, hyperlipidemia was brought to the ED from local [facility] for evaluation of right hip pain 4 days duration following a mechanical fall without any initial reported head trauma or loss of consciousness. An outside x-ray obtain few days ago was read as negative, however patient continued to complain of mild right sided hip pain noted 7/10 in intensity. Patient again sustained a fall last night; however this time striking the front of his head but unsure if there was any loss of consciousness. Patient does have a history of dementia and is a very poor historian. Also reported, was the increase bilateral lower extremity edema without any complaint of chest pain or shortness of breath over the past several days. CBC/BMP: 02/10/17 0359 02/10/17 0359 Significant Findings Laboratory Tests Test 02/08/17 02/08/17 02/09/17 02/10/17 12:05 16:51 05:50 03:59 Urine Bacteria RARE /hpf (NONE) B-Type Natriuretic Peptide 109 PG/ML (0-100) Sodium Level 146 MEQ/L (136-145) Potassium Level 3.4 MEQ/L (3.5-5.1) Blood Urea Nitrogen 32 MG/DL (7-18) 23 MG/DL (7-18) Estimat Glomerular Filtration 88 ML/MIN (>89) 85 ML/MIN (>89) Rate Random Glucose 72 MG/DL 173 MG/DL (74-106) (74-106) Calcium Level 7.9 MG/DL 7.8 MG/DL (8.5-10.1) (8.5-10.1) Total Protein 5.5 GM/DL (6.4-8.2) Albumin 2.4 GM/DL (3.4-5.0) Red Blood Count 2.96 MIL/MM3 (4.50-5.90) Hemoglobin 8.6 GM/DL (13.0-17.0) Hematocrit 25.5 % (39.0-51.0) Imaging Last Impressions Pelvis CT 02/08/17 0000 Signed Impressions: Service Date/Time: Wednesday, February 08, 2017 14:29 - CONCLUSION: Acute fracture of the greater trochanter of the right hip. There is associated hematoma formation as detailed above. Left hip is intact. Marin Ledbetter Jr., MD Hip and Pelvis X-Ray 02/08/17 0000 Signed Impressions: Service Date/Time: Wednesday, February 08, 2017 11:21 - CONCLUSION: Intertrochanteric fracture with avulsion of the greater trochanter is noted. Intact pelvis and left hip. Enoc Dunbar MD Head CT 02/08/17 0000 Signed Impressions: Service Date/Time: Wednesday, February 08, 2017 12:18 - CONCLUSION: Aging brain with atrophic changes and chronic white matter disease. No evidence of acute infarct, hemorrhage, mass, edema or interval change. Enoc Dunbar MD Chest X-Ray 02/08/17 0000 Signed Impressions: Service Date/Time: Wednesday, February 08, 2017 11:59 - CONCLUSION: No acute disease. Enoc Dunbar MD PE at Discharge GENERAL: in NAD CARDIOVASCULAR: Regular rate and rhythm without murmurs, gallops, or rubs. +1 DP pulses B/L RESPIRATORY: Breath sounds equal bilaterally. No accessory muscle use. GASTROINTESTINAL: Abdomen soft, non-tender, nondistended. MUSCULOSKELETAL: ROM of right hip limited due to fracture but sensation intact. ext warm BACK: Nontender without obvious deformity. No CVA tenderness. SKIN: abrasion on forehead. Pt update on day of discharge Pt doing well. tells me that his hip pain is well controlled but does mention pain in his back which is chronic for him. Denies any chest pain, SOB, nausea or vomiting. State he had a pleasant experience here Hospital Course Intertrochanteric fracture of the right hip: -s/p Mechanical fall. - CT pelvic/abdomen noted and review with finding of acute fracture of the right fracture. -ortho saw patient and recommend conservative management with pain control , NWB RLE. Pt will f/u w Ortho in 2 weeks Mechanical fall - Head CT noted and reviewed without any acute finding.UA negative. Fall precaution. Leukocytosis - UA negative and CXR without any acute finding DM2 on insulin and oral agents. to be continued as an outpatient. HLP, dementia continue outpatient medications DVT prophylaxis: scd Pt Condition on Discharge: Stable Discharge Disposition: Discharge to SNF Discharge Time: > 30 minutes Discharge Instructions DIET: Follow Instructions for: Heart Healthy Diet Activities you can perform: Non Weight Bearing Other Activity Instructions: NWB right lower extremity Follow up Referrals: Orthopedics - 2 Weeks with Prasanna Posadas Jr., MD Physician - 1 Week New Medications: Hydrocodone-Acetaminophen (Hydrocodone-Acetaminophen) 5-325 mg Tab 1 TAB PO Q4-6H PRN pain 6-10 #30 TAB Continued Medications: Aspirin (Aspirin) 81 Mg Chew 81 MG CHEW DAILY Ref 0 TAB Buspirone (Buspirone) 5 Mg Tab 5 MG PO TID Anxiety Ref 0 TAB Cholecalciferol (Vitamin D-3) 2,000 Unit Tab Clonazepam (Clonazepam) 0.5 Mg Tab 0.5 MG PO BID PRN AGITATION #5 Ref 0 TAB (This prescription has been renewed) Donepezil (Donepezil) 10 Mg Tab 10 MG PO HS Dementia #30 Ref 0 TAB Dorzolamide Opth Drops (Dorzolamide Opth Drops) 2% Soln 1 DROP EACH EYE BID Glaucoma #1 Ref 0 BOTTLE Escitalopram (Escitalopram) 10 Mg Tab 10 MG PO DAILY #30 Ref 0 TAB Folic Acid (Folic Acid) 400 Mcg Tab 400 MCG PO DAILY Nutritional Supplement Ref 0 TAB Hydrochlorothiazide (Hydrochlorothiazide) 25 Mg Tab 25 MG PO DAILY #30 Ref 0 TAB Insulin Glargine Inj (Lantus Inj) 100 Unit/Ml Inj 26 UNITS SQ HS Levothyroxine (Levothyroxine) 50 Mcg Tab 50 MCG PO DAILY Thyroid #30 Ref 0 TAB Losartan (Losartan) 50 Mg Tab 75 MG PO BID Blood Pressure Management #30 Ref 0 TAB Magnesium Oxide (Magnesium Oxide) 250 Mg Tab 250 MG PO BID #100 TAB Memantine (Memantine) 10 Mg Tab 10 MG PO BID Alzheimer's Dementia Ref 0 TAB Metformin (Metformin) 1,000 Mg Tab 1000 MG PO BIDPC With meals Blood Sugar Management #60 Ref 0 TAB Methenamine Hippurate (Methenamine Hippurate) 1 Gm Tab 1 GM PO BID Infection Ref 0 TAB Metoprolol Tartrate (Metoprolol Tartrate) 25 Mg Tab 25 MG PO BID #60 Ref 0 TAB Morphine ER (Morphine ER) 30 Mg Tab 30 MG PO BID Pain Management #10 Ref 0 TAB (This prescription has been renewed) Potassium Chloride ER (Klor-Con 10) 10 Meq Tab 10 MEQ PO DAILY Electrolyte Replacement #30 Ref 0 TAB Sennosides (Senna Lax) 8.6 Mg Tab Simvastatin (Zocor) 40 Mg Tab 40 MG PO DAILY Cholesterol Management #30 Ref 0 TAB Discontinued Medications: Hydrocodone-Acetaminophen (Hydrocodone-Acetaminophen) 5-325 mg Tab 1 TAB PO Q4H PRN PAIN Ref 0 TAB Molly Rene MD Feb 11, 2017 12:08
[2017-02-11 12:22] VITALS: BP 152/71; PULSE 110; RESP 18; TEMP 98; O2SAT 100
[2017-02-11] MEDS: ACETAMINOPHEN/HYDROcodone 325 MG/5 MG TAB PO PRN (13:45)
== END 2017-02-11 14:38 | DRG 536 ==
LOC: PHED 10:00 → PHEDA 12:46 → N06A 02-09 01:14
PROVIDERS: ADMIT Hospitalist; ATTEND Hospitalist
DX: S72.111A Displaced fracture of greater trochanter of right femur, initial encounter for closed fracture (principal); E11.649 Type 2 diabetes mellitus with hypoglycemia without coma; F03.90 Unspecified dementia, unspecified severity, without behavioral disturbance, psychotic disturbance, mood disturbance, and anxiety; I10 Essential (primary) hypertension; H91.90 Unspecified hearing loss, unspecified ear; H40.9 Unspecified glaucoma; E03.9 Hypothyroidism, unspecified; E78.5 Hyperlipidemia, unspecified; W18.30XA Fall on same level, unspecified, initial encounter; Y92.89 Other specified places as the place of occurrence of the external cause; Z91.81 History of falling; Z85.528 Personal history of other malignant neoplasm of kidney
CPT/HCPCS: 70450; 71010; 72192; 73502; 80048; 80053; 81001; 82948; 83880; 85025; 85027; 85610; 86850; 86900; 86901; 93005; J1815; J2270; J2405; J7030; J7120

== ENCOUNTER 2017-02-19 11:06 | Emergency (ER) | payer MEDICARE, BC ==
[~2017-02-19 11:06] MED LIST changes: -ASPI81 PO; +ASPI81CH CHEW; +BUSP5TAB PO; +CHOL1TAB42; +CLON0.5T PO; +DONE10TA7 PO; -DONE5TAB14 PO; +DORZ2SOL EACH EYE; -DORZ2SOL3 EACH EYE; +ESCI10TA PO; -FOLI20CA PO; +FOLI400T PO; +HYDR-3516 PO; +HYDR25TA5 PO; -LEVO.025 PO; +LEVO50TA4 PO; -LORTA5 PO; +LOSA50TA PO; +MAGN250T9 PO; -MAGN400T PO; -MEMA1TAB2; +MEMA1TAB2 PO; +METF1000 PO; -METF500 PO; +METO25TA3 PO; -MIRA33502 PO; +MORP1TAB25 PO; -MORP30SU PO; -NOVONP2 SQ; +SENN8.6T15; -SENN8.6T15 PO; -TAB-TAB PO; -VITA100032; +ZOCO40TA PO; -ZOCO80TA PO
[2017-02-19 11:22] VITALS: BP 117/57; PULSE 56; RESP 18; TEMP 98.1; O2SAT 93
--- NOTE | 2017-02-19 11:27 | PD ---
HPI Chief Complaint: altered mental status Time Seen by Provider: 11:23 Travel History International Travel<30 days: No Contact w/Intl Traveler<30days: No History of Present Illness HPI Send 86 year-old woman who recently had a fracture of the greater trochanter his right hip, recovering at [facility], sent into the emergency department today because he was sluggishly responsive. Patient received 30 mg of extended release morphine at 8 AM. Reportedly after that was difficult to rouse. In the emergency department here he is arousable without any complaint. States his pain is under control. He had lab work done yesterday was overall remarkable just for low glucose of 45, hemoglobin 9.1. Blood sugars normal here. History Past Medical History Narrative Medical History of right kidney cancer Hyperlipidemia Diabetes Heart a. Hypertension Hypothyroidism Remote TIA Dementia Right hip greater trochanter fracture Social History Alcohol Use: No Tobacco Use: No Allergies-Medications (Allergen,Severity, Reaction): Coded Allergies: Visipaque (Verified Allergy, Severe, Hives, 02/08/17) Codeine (Verified Adverse Reaction, Intermediate, Nausea/Vomiting, 02/08/17 ) Reported Meds & Prescriptions Reported Meds & Active Scripts Active Hydrocodone-Acetaminophen 5-325 mg Tab 1 Tab PO Q4-6H PRN Clonazepam 0.5 Mg Tab 0.5 Mg PO BID PRN Morphine ER (Morphine Sulfate) 30 Mg Tab 30 Mg PO BID Reported Vitamin D-3 (Cholecalciferol) 2,000 Unit Tab Zocor (Simvastatin) 40 Mg Tab 40 Mg PO DAILY Senna Lax (Sennosides) 8.6 Mg Tab Metoprolol Tartrate 25 Mg Tab 25 Mg PO BID Methenamine Hippurate 1 Gm Tab 1 Gm PO BID Metformin (Metformin HCl) 1,000 Mg Tab 1,000 Mg PO BIDPC With meals Memantine 10 Mg Tab 10 Mg PO BID Magnesium Oxide 250 Mg Tab 250 Mg PO BID Losartan (Losartan Potassium) 50 Mg Tab 75 Mg PO BID Levothyroxine (Levothyroxine Sodium) 50 Mcg Tab 50 Mcg PO DAILY Lantus Inj (Insulin Glargine) 100 Unit/Ml Inj 26 Units SQ HS Klor-Con 10 (Potassium Chloride) 10 Meq Tab 10 Meq PO DAILY Hydrochlorothiazide 25 Mg Tab 25 Mg PO DAILY Folic Acid 400 Mcg Tab 400 Mcg PO DAILY Escitalopram (Escitalopram Oxalate) 10 Mg Tab 10 Mg PO DAILY Dorzolamide Opth Drops (Dorzolamide HCl) 2% Soln 1 Drop EACH EYE BID Donepezil 10 Mg Tab 10 Mg PO HS Buspirone (Buspirone HCl) 5 Mg Tab 5 Mg PO TID Aspirin 81 Mg Chew 81 Mg CHEW DAILY Review of Systems Except as stated in HPI: all other systems reviewed are Neg Physical Exam Narrative GENERAL: Well-appearing 86-year-old man SKIN: Warm and dry. HEAD: Atraumatic. Normocephalic. EYES: Pinpoint pupils. ENT: No nasal bleeding or discharge. Mucous membranes pink and moist. NECK: Trachea midline. No JVD. CARDIOVASCULAR: Regular rate and rhythm. No murmur appreciated. RESPIRATORY: No accessory muscle use. Clear to auscultation. Breath sounds equal bilaterally. GASTROINTESTINAL: Abdomen soft, non-tender, nondistended. Hepatic and splenic margins not palpable. MUSCULOSKELETAL: No obvious deformities. No clubbing. No cyanosis. No edema. NEUROLOGICAL: Sluggish but easily arousable. Pinpoint pupils. No cranial nerve deficits. No facial asymmetry. Motor showing full and equal upper and lower extremities. PSYCHIATRIC: Appropriate mood and affect; insight and judgment normal. [facility] Medical Decision Making Medical Screen Exam Complete: Yes Emergency Medical Condition: Yes Differential Diagnosis CVA, infection, electrolyte abnormality, opiate poisoning, other Narrative Course Medical decision making 86-year-old man who was in from his [facility] with sluggish responsiveness after receiving extended-release morphine. 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 He is breathing well. He is easily arousable. He has no other evidence of stroke or infection. Labs done yesterday there were unremarkable. He has no UTI symptoms. At this point recommended decrease his dose of morphine and follow- up with his doctor there. Diagnosis Primary Impression: Altered mental status Additional Impression: Adverse effect of morphinan opioid Additional Instructions: I recommend decreasing the patient's dose of long acting morphine. Follow-up with his doctor there. Return to the emergency department for any new or worsening symptoms. Med/Other Pt SpecificInfo: Existing Med Changed Disposition: DISCHARGE HOME Condition: Stable Yovanny Pack MD Feb 19, 2017 11:27
[2017-02-19] MEDS ORDERED: MIRA33504 PO (11:52)
[2017-02-19] MEDS ORDERED: HUMALOG SQ (11:52)
[2017-02-19] MEDS ORDERED: FERR200T PO (11:52)
[2017-02-19] MEDS ORDERED: MAGN500T2 PO (11:52)
[2017-02-19 13:48] VITALS: BP 126/56
== END 2017-02-19 13:50 | disposition home or self-care (01) ==
LOC: PHEFT 11:06
DX: R41.82 Altered mental status, unspecified (principal); T40.2X5A Adverse effect of other opioids, initial encounter; E11.9 Type 2 diabetes mellitus without complications; I10 Essential (primary) hypertension; F03.90 Unspecified dementia, unspecified severity, without behavioral disturbance, psychotic disturbance, mood disturbance, and anxiety; Y92.129 Unspecified place in nursing home as the place of occurrence of the external cause
CPT/HCPCS: 99284

== ENCOUNTER 2017-04-14 08:57 | Emergency (ER) | payer MEDICARE, BC ==
[~2017-04-14] VITALS: Ht 180.3 cm; Wt 77.0 kg
[~2017-04-14 08:57] MED LIST changes: +FERR200T PO; +HUMALOG SQ; -HYDR-3516 PO; -MAGN250T9 PO; +MAGN500T2 PO; +MIRA33504 PO
[2017-04-14 09:01] VITALS: BP 129/62; PULSE 75; RESP 14; TEMP 98.6; O2SAT 95
--- NOTE | 2017-04-14 09:39 | PD ---
HPI Chief Complaint: Fall Time Seen by Provider: 09:19 Travel History International Travel<30 days: No Contact w/Intl Traveler<30days: No Traveled to known affect area: No History of Present Illness HPI This is an 86 year old female who has a history of dementia who presents to the emergency department having had a fall. Pt. was in the rehab for a femur fracture. While walking, he slipped and fell but noone saw him. Pt. was able to get up but then lost consciousness for a few seconds and then woke up. Pt. is reporting right shoulder and wrist pain so the brought him to the emergency department. Pt. is a poor historian. Pt. does take aspirin. PFSH Past Medical History Arthritis: Yes Autoimmune Disease: No Heart Rhythm Problems: No Cancer: Yes (RT KIDNEY CA-REMOVED. PROSTATE) Cardiac Catheterization: No Cardiovascular Problems: Yes High Cholesterol: Yes Congestive Heart Failure: No Cerebrovascular Accident: Yes Dementia: Yes Diabetes: Yes Patient Takes Glucophage: No Diminished Hearing: Yes ([place]) Endocrine: Yes Gastrointestinal Disorders: No Glaucoma: Yes Genitourinary: Yes Hypertension: Yes Immune Disorder: No Musculoskeletal: Yes Neurologic: Yes Respiratory: No Immunizations Current: Yes Myocardial Infarction: No Thyroid Disease: Yes (HYPOTHYROID) ?: Not Past Surgical History Cholecystectomy: Yes Coronary Artery Bypass Graft: No Genitourinary Surgery: Yes (RT NEPHRECTOMY 2005) Hysterectomy: No Joint Replacement: Yes (LEFT KNEE- osteotomy) Other Surgery: Yes (RT URETER CANCER) Social History Alcohol Use: No Tobacco Use: No (many years ago.) Substance Use: No Allergies-Medications (Allergen,Severity, Reaction): Coded Allergies: Visipaque (Verified Allergy, Severe, Hives, 02/08/17) Codeine (Verified Adverse Reaction, Intermediate, Nausea/Vomiting, 02/08/17 ) Reported Meds & Prescriptions Reported Meds & Active Scripts Active Clonazepam 0.5 Mg Tab 0.5 Mg PO BID PRN Morphine ER (Morphine Sulfate) 30 Mg Tab 30 Mg PO BID Reported Lidoderm Patch 12 HR (Lidocaine) 5% Patch 1 Patch TOPICAL DAILY Remove patch after 12 hours Lasix (Furosemide) 20 Mg Tab 20 Mg PO DAILY Fluticasone Nasal [place] 50 Mcg/Act Naspr 50 Mcg EACH NARE BID 50 mcg/spray Cetirizine (Cetirizine HCl) 10 Mg Tab 10 Mg PO DAILY Atorvastatin (Atorvastatin Calcium) 20 Mg Tab 20 Mg PO HS [place] (Hydrocodone-Acetaminophen) 5-325 mg Tab 1 PO Q4H PRN Humalog Inj (Insulin Human Lispro) 1,000 Unit/10 Ml Vial 1-9 Units SQ ACHS Max dose at bedtime:( )units; sugars< 70,(0)units; sugars 150-199,(1)unit; sugars 200-249,(3)units; sugars 250-299,(5)units; sugars 300-349,(7)units; sugars more than 349,(9)units. Magnesium Oxide 500 Mg Tab 500 Mg PO BID Feosol (Ferrous Sulfate) 200 Mg Tab 325 Mg PO BIDPC Miralax Powder (Polyethylene Glycol 3350 Powder) 17 Gm Powd 17 Gm PO HS Mix and dissolve one measuring cap-ful (17 grams) in water or juice. Vitamin D-3 (Cholecalciferol) 2,000 Unit Tab Senna Lax (Sennosides) 8.6 Mg Tab Methenamine Hippurate 1 Gm Tab 1 Gm PO BID Metformin (Metformin HCl) 1,000 Mg Tab 1,000 Mg PO BIDPC With meals Memantine 10 Mg Tab 10 Mg PO BID Losartan (Losartan Potassium) 50 Mg Tab 75 Mg PO BID Levothyroxine (Levothyroxine Sodium) 50 Mcg Tab 50 Mcg PO DAILY Lantus Inj (Insulin Glargine) 100 Unit/Ml Inj 26 Units SQ HS Hydrochlorothiazide 25 Mg Tab 25 Mg PO DAILY Folic Acid 400 Mcg Tab 400 Mcg PO DAILY Escitalopram (Escitalopram Oxalate) 10 Mg Tab 10 Mg PO DAILY Dorzolamide Opth Drops (Dorzolamide HCl) 2% Soln 1 Drop EACH EYE BID Donepezil 10 Mg Tab 10 Mg PO HS Buspirone (Buspirone HCl) 5 Mg Tab 5 Mg PO TID Aspirin 81 Mg Chew 81 Mg CHEW DAILY Review of Systems ROS Limitations: Poor Historian Physical Exam Narrative GENERAL:Well appearing, no acute distress SKIN: Focused skin assessment warm and dry. HEAD: Atraumatic. Normocephalic. EYES: Pupils equal and round. No injection or drainage. ENT: Moist mucous membranes NECK: Trachea midline. No cervical spine tenderness CARDIOVASCULAR: Regular rate and rhythm. No murmur appreciated. RESPIRATORY: Clear to auscultation. Breath sounds equal bilaterally. GASTROINTESTINAL: Abdomen soft, non-tender, nondistended. MUSCULOSKELETAL: Tender to palpation in the upper lumbar spine over the vertebral bodies. Moving all extremities. NEUROLOGICAL: Confused but pleasant No obvious cranial nerve deficits. PSYCHIATRIC: Appropriate mood and affect; insight and judgment normal. Data Data Last Documented VS Vital Signs Date Time Temp Pulse Resp B/P Pulse Ox O2 Delivery O2 Flow Rate FiO2 04/14/17 11:30 97.6 76 16 140/[address] Brain W/O Iv Contrast(Rout) (04/14/17 ) Ct Cerv Spine W/O Contrast (04/14/17 ) Hip, Uni(Ap&Lat) W Ap Pelvis (04/14/17 ) ^ Insert Iv (04/14/17 09:46) Shoulder, Limited(2vws) (04/14/17 ) Spine, Lumbar - Ltd (Ap & Lat) (04/14/17 ) Mri L Spine W/O Contrast (04/14/17 ) MDM Medical Decision Making Medical Screen Exam Complete: Yes Emergency Medical Condition: Yes Interpretation(s) Afebrile, no tachycardia, normotensive Last 24 hours Impressions Shoulder X-Ray 04/14/17 0000 Signed Impressions: Service Date/Time: Friday, April 14, 2017 10:15 - CONCLUSION: 1. There is no evidence of acute fracture. Wesley Rojas MD Lumbar Spine X-Ray 04/14/17 0000 Signed Impressions: Service Date/Time: Friday, April 14, 2017 10:16 - CONCLUSION: 1. Compression fracture L1 age uncertain. MRI is recommended for further evaluation if clinically indicated. Wesley Rojas MD Hip and Pelvis X-Ray 04/14/17 0000 Signed Impressions: Service Date/Time: Friday, April 14, 2017 10:12 - CONCLUSION: 1. There is no evidence of acute fracture. Wesley Rojas MD Head CT 04/14/17 0000 Signed Impressions: Service Date/Time: Friday, April 14, 2017 10:19 - CONCLUSION: 1. Cortical atrophy and microvascular ischemic demyelinative change. No acute intracranial abnormality is identified. Stable compared to previous examination. Amauri Bruno MD Differential Diagnosis Intracranial hemorrhage, cervical spine fracture, compression fracture, proximal humerus fracture Narrative Course This is an 86-year-old male who presents to the emergency department having had a mechanical fall. He is a poor historian and can't tell us much about his fall. CT of the head and cervical spine were obtained which were reassuring. X -rays were unremarkable with no evidence of fracture with the exception of a compression deformity at L1. MRI was obtained and this demonstrates this compression fracture is chronic. I think patient is safe for discharge. Diagnosis Primary Impression: Fall Qualified Code: W19.XXXA - Fall, initial encounter Additional Impression: Shoulder sprain Qualified Code: S43.402A - Sprain of left shoulder, unspecified shoulder sprain type, initial encounter Patient Instructions: General Instructions Med/Other Pt SpecificInfo: No Change to Meds Disposition: 01 DISCHARGE HOME Condition: Stable Misa Hayden MD April 14, 2017 09:38
[2017-04-14] MEDS ORDERED: ATOR20TA15 PO (09:59)
[2017-04-14] MEDS ORDERED: CETI10 PO (09:59)
[2017-04-14] MEDS ORDERED: FURO1TAB62 PO (09:59)
[2017-04-14] MEDS ORDERED: FLUT50SP EACH NARE (09:59)
[2017-04-14] MEDS ORDERED: LIDO5DIS35 TOPICAL (09:59)
[2017-04-14] MEDS ORDERED: NORC5TAB PO (09:59)
--- NOTE | 2017-04-14 10:28 | RADRPT ---
EXAM DATE/TIME: 04/14/2017 10:12 [facility] COMPARISON: No previous studies available for comparison. INDICATIONS : Left hip pain after falling today. MEDICAL HISTORY : Hypothyroidism. Cerebrovascular disease. Hypertension. Right renal cancer. Prostate cancer. SURGICAL HISTORY : Nephrectomy, right. ENCOUNTER: Initial ACUITY: 1 day PAIN SCORE: 4/10 LOCATION: Left hip. FINDINGS: There is no evidence of acute fracture. Bony mineralization is normal. There is heterotopic ossificat ion superior to the greater trochanter on the right. Joint spaces are maintained. CONCLUSION: 1. There is no evidence of acute fracture. Wesley Rojas MD on April 14, 2017 at 10:25 Board Certified Radiologist. This report was verified electronically.
--- NOTE | 2017-04-14 10:29 | RADRPT ---
EXAM DATE/TIME: 04/14/2017 10:15 [facility] COMPARISON: No previous studies available for comparison. INDICATIONS : Left shoulder pain after falling today. MEDICAL HISTORY : Hypothyroidism. Cerebrovascular disease. Hypertension. Right renal cancer. Prostate cancer. SURGICAL HISTORY : Nephrectomy, right. ENCOUNTER: Initial ACUITY: 1 day PAIN SCORE: 4/10 LOCATION: Left shoulder. FINDINGS: There is no evidence of acute fracture. Bony mineralization is normal. There is moderate osteoarthrit is involving the acromioclavicular joint. Calcific tendinitis is present at the insertion of the supr aspinatus tendon CONCLUSION: 1. There is no evidence of acute fracture. Wesley Rojas MD on April 14, 2017 at 10:26 Board Certified Radiologist. This report was verified electronically.
--- NOTE | 2017-04-14 10:30 | RADRPT ---
EXAM DATE/TIME: 04/14/2017 10:16 [facility] COMPARISON: SPINE LUMBAR LTD (AP & LAT), February 05, 2014, 14:47. INDICATIONS : Lower back pain after falling today. MEDICAL HISTORY : Hypothyroidism. Cerebrovascular disease. Hypertension. Right renal cancer. Prostate cancer. SURGICAL HISTORY : Nephrectomy, right. ENCOUNTER: Initial ACUITY: 1 day PAIN SCORE: 3/10 LOCATION: Lumbar. FINDINGS: The vertebral bodies are normal in alignment on the lateral view. There is 50% vertebral body height loss at L1 age uncertain. MRI is recommended for further evaluation if clinically indicated. There is degenerative disc disease with disc space narrowing and marginal osteophyte formation at L5-S1 with associated facet arthritis CONCLUSION: 1. Compression fracture L1 age uncertain. MRI is recommended for further evaluation if clinically ind icated. Wesley Rojas MD on April 14, 2017 at 10:27 Board Certified Radiologist. This report was verified electronically.
--- NOTE | 2017-04-14 10:46 | RADRPT ---
EXAM DATE/TIME: 04/14/2017 10:19 [facility] COMPARISON: CT BRAIN W/O CONTRAST, February 08, 2017, 12:18. CT PELVIS W/O CONTRAST, February 08, 2017, 14:29. INDICATIONS : Unwitnessed fall. RADIATION DOSE: 38.13 CTDIvol (mGy) MEDICAL HISTORY : Cardiovascular disease. Hypertension. Diabetes mellitus type 2.Renal cancer. SURGICAL HISTORY : None. ENCOUNTER: Initial ACUITY: 1 day PAIN SCALE: 0/10 LOCATION: cranial TECHNIQUE: Multiple contiguous axial images were obtained of the head. Using automated exposure control and adj ustment of the mA and/or kV according to patient size, radiation dose was kept as low as reasonably a chievable to obtain optimal diagnostic quality images. FINDINGS: CEREBRUM: The examination demonstrates cortical atrophy and microvascular ischemic demyelinative change. There is no acute intracranial hemorrhage. No mass lesion is identified. POSTERIOR FOSSA: The cerebellum and brainstem are intact. The 4th ventricle is midline. The cerebellopontine angle i s unremarkable. EXTRACRANIAL: The visualized portion of the orbits is intact. SKULL: The calvaria is intact. No evidence of skull fracture. CONCLUSION: 1. Cortical atrophy and microvascular ischemic demyelinative change. No acute intracranial abnormalit y is identified. Stable compared to previous examination. Amauri Bruno MD on April 14, 2017 at 10:35 Board Certified Radiologist. This report was verified electronically.
[2017-04-14 11:30] VITALS: BP 140/65; PULSE 76; RESP 16; TEMP 97.6; O2SAT 98
--- NOTE | 2017-04-14 13:51 | RADRPT ---
EXAM DATE/TIME: 04/14/2017 12:31 [facility] COMPARISON: No previous studies available for comparison. INDICATIONS : Patient fell at nursing facility. MEDICAL HISTORY : Hypertension. Diabetes mellitus type 2. Hypercholesterolemia. Kidney and prostate CA SURGICAL HISTORY : Cholecystectomy. Kidney removed, knee and shoulder surgery ENCOUNTER: Initial ACUITY: 1 day PAIN SCORE: 0/10 LOCATION: back TECHNIQUE: Multiplanar multisequence MRI of the lumbar spine was performed without contrast. FINDINGS: T12-L1: There is anterior wedging of L1 causing minimal compression on the anterior thecal space. L1-L2: The thecal sac has a normal diameter. No evidence of disc bulge or protrusion. The neural foramina are patent bilaterally. L2-L3: There is generalized disc bulging at L2-L3 causing some flattening of the anterior thecal space with mild degenerative changes in the facets. L3-L4: There is generalized disc bulging at L3-L4 causing radiographically significant spinal stenosis with associated facet hypertrophy. L4-L5: There is some mild bulging at L4-L5 with minimal bilateral neural foraminal encroachment. There are moderate degenerative changes of the facets. L5-S1: The L5-S1 disc is significantly degenerated with moderate facet disease and minimal lateral recess st enosis. The SI joints are normal. CONCLUSION: 1. Compression of L1 that is chronic by MRI. 2. Radiographically significant spinal stenosis as described above. Tigre Bruno MD FACR on April 14, 2017 at 12:55 Board Certified Radiologist. This report was verified electronically.
--- NOTE | 2017-04-14 14:04 | RADRPT ---
EXAM DATE/TIME: 04/14/2017 10:19 [facility] COMPARISON: CT CERVICAL SPINE W/O CONTRAST, February 05, 2014, 15:40. INDICATIONS : Unwitnessed fall. RADIATION DOSE: 14.25 CTDIvol (mGy) MEDICAL HISTORY : Cardiovascular disease. Hypertension. Diabetes mellitus type 2. SURGICAL HISTORY : None. ENCOUNTER: Initial ACUITY: 1 day PAIN SCALE: 0/10 LOCATION: neck TECHNIQUE: Volumetric scanning of the cervical spine was performed. Multiplanar reconstructions in the sagittal, coronal and oblique axial planes were performed. Using automated exposure control and adjustment o f the mA and/or kV according to patient size, radiation dose was kept as low as reasonably achievable to obtain optimal diagnostic quality images. FINDINGS: There are degenerative changes at C1 and C2. C2-C3: Mild uncinate ridging is present without significant spinal stenosis. Neural foramina are adequate. C3-C4: Mild uncinate ridging is present with minimal bilateral neural foraminal encroachment. C4-C5: Mild uncinate ridging is present with bilateral neural foraminal encroachment. There is no significa nt spinal stenosis. C5-C6: There is mild uncinate ridging at C5-C6 causing some flattening of the anterior thecal space. There is no significant spinal stenosis. C6-C7: The bony spinal canal is normal in size. No evidence of disc bulge or herniation. The neural forami na are bilaterally patent. C7-T1: The bony spinal canal is normal in size. No evidence of disc bulge or herniation. The neural forami na are bilaterally patent. CONCLUSION: Moderate degenerative changes. There is no evidence for a fracture. Tigre Bruno MD FACR on April 14, 2017 at 13:53 Board Certified Radiologist. This report was verified electronically.
== END 2017-04-14 15:30 | disposition home or self-care (01) ==
LOC: NEPE 08:57
DX: S43.402A Unspecified sprain of left shoulder joint, initial encounter (principal); F03.90 Unspecified dementia, unspecified severity, without behavioral disturbance, psychotic disturbance, mood disturbance, and anxiety; W01.0XXA Fall on same level from slipping, tripping and stumbling without subsequent striking against object, initial encounter; Y93.01 Activity, walking, marching and hiking; Y92.538 Other ambulatory health services establishments as the place of occurrence of the external cause
CPT/HCPCS: 70450; 72100; 72125; 72148; 73030; 73502

== ENCOUNTER 2017-05-30 16:12 | Observation (INO) | payer MEDICARE, BC ==
[~2017-05-30] VITALS: Ht 182.9 cm; Wt 75.0 kg
[~2017-05-30 16:12] MED LIST changes: +ATOR20TA15 PO; +CETI10 PO; +FLUT50SP EACH NARE; +FURO1TAB62 PO; +LIDO5DIS35 TOPICAL; -METO25TA3 PO; +NORC5TAB PO; -POTA-243 PO; -ZOCO40TA PO
[2017-05-30 16:27] VITALS: BP 143/84; PULSE 97; RESP 18; TEMP 98.1; O2SAT 98
[2017-05-30] MEDS ORDERED: AMLO10TA2 PO (16:36)
[2017-05-30] MEDS ORDERED: SPIR25TA PO (16:36)
--- NOTE | 2017-05-30 16:42 | PD ---
HPI Chief Complaint: Chest Pain Time Seen by Provider: 16:31 Travel History International Travel<30 days: No Contact w/Intl Traveler<30days: No Traveled to known affect area: No History of Present Illness HPI 86-year-old male with history of diabetes, hypertension, anxiety, depression, kidney cancer, brought in by his son from his [facility] in [place] for evaluation of chest pain. Symptoms started shortly after lunch. The patient points to the center of his chest and states he has a terrible pain. He is having slight dyspnea. No known history of cardiopulmonary disease. No fevers , cough, or recent illness. Patient also complains of feeling diffuse chills. His son believes he may have another UTI. PFSH Past Medical History Arthritis: Yes Autoimmune Disease: No Heart Rhythm Problems: No Cancer: Yes (RT KIDNEY CA-REMOVED. PROSTATE) Cardiac Catheterization: No Cardiovascular Problems: Yes High Cholesterol: Yes Congestive Heart Failure: No Cerebrovascular Accident: Yes Dementia: Yes Diabetes: Yes Patient Takes Glucophage: Yes Diminished Hearing: Yes ([place]) Endocrine: Yes Gastrointestinal Disorders: No Glaucoma: Yes Genitourinary: Yes Hypertension: Yes Immune Disorder: No Musculoskeletal: Yes Neurologic: Yes Respiratory: No Immunizations Current: Yes Myocardial Infarction: No Thyroid Disease: Yes (HYPOTHYROID) Influenza Vaccination: Yes ?: Not Past Surgical History Cholecystectomy: Yes Coronary Artery Bypass Graft: No Genitourinary Surgery: Yes (RT NEPHRECTOMY 2006) Hysterectomy: No Joint Replacement: Yes (LEFT KNEE- osteotomy) Other Surgery: Yes (RT URETER CANCER) Social History Alcohol Use: No Tobacco Use: No (many years ago.) Substance Use: No Allergies-Medications (Allergen,Severity, Reaction): Coded Allergies: Visipaque (Verified Allergy, Severe, Hives, 05/30/17) Codeine (Verified Adverse Reaction, Intermediate, Nausea/Vomiting, 05/30/17) Reported Meds & Prescriptions Reported Meds & Active Scripts Active Clonazepam 0.5 Mg Tab 0.5 Mg PO BID PRN Morphine ER (Morphine Sulfate) 30 Mg Tab 30 Mg PO BID Reported Spironolactone 25 Mg Tab 25 Mg PO DAILY Amlodipine (Amlodipine Besylate) 10 Mg Tab 20 Mg PO DAILY Cetirizine (Cetirizine HCl) 10 Mg Tab 10 Mg PO HS Atorvastatin (Atorvastatin Calcium) 20 Mg Tab 20 Mg PO HS [place] (Hydrocodone-Acetaminophen) 5-325 mg Tab 1 PO Q4H PRN Humalog Inj (Insulin Human Lispro) 1,000 Unit/10 Ml Vial 1-9 Units SQ ACHS Max dose at bedtime:( )units; sugars< 70,(0)units; sugars 150-199,(1)unit; sugars 200-249,(3)units; sugars 250-299,(5)units; sugars 300-349,(7)units; sugars more than 349,(9)units. Magnesium Oxide 500 Mg Tab 500 Mg PO BID Feosol (Ferrous Sulfate) 200 Mg Tab 325 Mg PO BIDPC Vitamin D-3 (Cholecalciferol) 2,000 Unit Tab Senna Lax (Sennosides) 8.6 Mg Tab Methenamine Hippurate 1 Gm Tab 1 Gm PO BID Metformin (Metformin HCl) 1,000 Mg Tab 1,000 Mg PO BIDPC With meals Memantine 10 Mg Tab 10 Mg PO BID Levothyroxine (Levothyroxine Sodium) 50 Mcg Tab 50 Mcg PO DAILY Lantus Inj (Insulin Glargine) 100 Unit/Ml Inj 26 Units SQ HS Hydrochlorothiazide 25 Mg Tab 25 Mg PO DAILY Folic Acid 400 Mcg Tab 400 Mcg PO DAILY Escitalopram (Escitalopram Oxalate) 10 Mg Tab 10 Mg PO DAILY Dorzolamide Opth Drops (Dorzolamide HCl) 2% Soln 1 Drop EACH EYE BID Donepezil 10 Mg Tab 10 Mg PO HS Buspirone (Buspirone HCl) 5 Mg Tab 5 Mg PO BID Aspirin 81 Mg Chew 81 Mg CHEW DAILY Review of Systems Except as stated in HPI: all other systems reviewed are Neg Physical Exam Narrative GENERAL: Well-developed, well-nourished, comfortable, no acute distress. SKIN: Focused skin assessment warm/dry. HEAD: Atraumatic. Normocephalic. EYES: Pupils equal and round. No scleral icterus. No injection or drainage. ENT: Mucous membranes pink and moist. NECK: Trachea midline. No JVD. CARDIOVASCULAR: Regular rate and rhythm. Distal pulses brisk and equal bilaterally. RESPIRATORY: No accessory muscle use. Clear to auscultation. Breath sounds equal bilaterally. GASTROINTESTINAL: Abdomen soft, non-tender, nondistended. MUSCULOSKELETAL: No obvious deformities. No clubbing. No cyanosis. No edema. NEUROLOGICAL: Awake and alert. No obvious cranial nerve deficits. Motor grossly within normal limits. Normal speech. PSYCHIATRIC: Appropriate mood and affect; insight and judgment normal. Data Data Last Documented VS Vital Signs Date Time Temp Pulse Resp B/P Pulse Ox O2 Delivery O2 Flow Rate FiO2 05/30/17 17:04 91 18 146/66 98 Room Air 05/30/17 16:27 98.1 Orders Ckmb (Isoenzyme) Profile (05/30/17 16:38) Complete Blood Count With Diff (05/30/17 16:38) Comprehensive Metabolic Panel (05/30/17 16:38) Magnesium (Mg) (05/30/17 16:38) Prothrombin Time / Inr (Pt) (05/30/17 16:38) Act Partial Throm Time (Ptt) (05/30/17 16:38) Troponin I (05/30/17 16:38) Lipase (05/30/17 16:38) Chest, Single Ap (05/30/17 16:38) Ecg Monitoring (05/30/17 16:38) Iv Access Insert/Monitor (05/30/17 16:38) Oximetry (05/30/17 16:38) Aspirin Chew (Aspirin Chew) (05/30/17 16:45) Sodium Chloride 0.9% Flush (Ns Flush) (05/30/17 16:45) Urinalysis - C+S If Indicated (05/30/17 16:38) Cath For Specimen (05/30/17 16:38) Labs Laboratory Tests Test 05/30/17 05/30/17 16:45 17:00 White Blood Count 16.1 TH/MM3 Red Blood Count 3.64 MIL/MM3 Hemoglobin 10.2 GM/DL Hematocrit 31.6 % Mean Corpuscular Volume 86.7 FL Mean Corpuscular Hemoglobin 28.1 PG Mean Corpuscular Hemoglobin 32.4 % Concent Red Cell Distribution Width 14.9 % Platelet Count 222 TH/MM3 Mean Platelet Volume 6.8 FL Neutrophils (%) (Auto) 84.5 % Lymphocytes (%) (Auto) 6.7 % Monocytes (%) (Auto) 7.0 % Eosinophils (%) (Auto) 0.4 % Basophils (%) (Auto) 1.4 % Neutrophils # (Auto) 13.6 TH/MM3 Lymphocytes # (Auto) 1.1 TH/MM3 Monocytes # (Auto) 1.1 TH/MM3 Eosinophils # (Auto) 0.1 TH/MM3 Basophils # (Auto) 0.2 TH/MM3 CBC Comment DIFF FINAL Differential Comment Prothrombin Time 11.2 SEC Prothromb Time International 1.0 RATIO Ratio Activated Partial 25.4 SEC Thromboplast Time Sodium Level 141 MEQ/L Potassium Level 4.2 MEQ/L Chloride Level 103 MEQ/L Carbon Dioxide Level 28.2 MEQ/L Anion Gap 10 MEQ/L Blood Urea Nitrogen 35 MG/DL Creatinine 1.20 MG/DL Estimat Glomerular Filtration 57 ML/MIN Rate Random Glucose 226 MG/DL Calcium Level 8.5 MG/DL Magnesium Level 1.9 MG/DL Total Bilirubin 0.3 MG/DL Aspartate Amino Transf 8 U/L (AST/SGOT) Alanine Aminotransferase 15 U/L (ALT/SGPT) Alkaline Phosphatase 68 U/L Total Creatine Kinase 24 U/L Troponin I LESS THAN 0.02 NG/ML Total Protein 7.0 GM/DL Albumin 3.2 GM/DL Lipase 57 U/L Urine Collection Type CATH Urine Color YELLOW Urine Turbidity CLEAR Urine pH 7.0 Urine Specific [place] 1.017 Urine Protein NEG mg/dL Urine Glucose (UA) NEG mg/dL Urine Ketones NEG mg/dL Urine Occult Blood NEG Urine Nitrite NEG Urine Bilirubin NEG Urine Leukocyte Esterase NEG Urine WBC 0-2 /hpf Urine Squamous Epithelial 0-5 /hpf Cells Urine Transitional Epithelial 0-5 /hpf Cells Urine Amorphous Sediment FEW Microscopic Urinalysis Comment CATH-CULT NOT IND Urine Collection Time 1700 MDM Medical Decision Making Medical Screen Exam Complete: Yes Emergency Medical Condition: Yes Medical Record Reviewed: Yes Interpretation(s) EKG: Sinus, rate 89, leftward axis, normal intervals, no acute ischemic abnormality. Differential Diagnosis ACS, pneumothorax, pericarditis, PE, pneumonia, UTI, gastritis, GERD Narrative Course Initial vital signs show heart rate 97, blood pressure 143/84, pulse ox 98% on room air, oral temp 98.1F. CBC shows WBC 16.1, hemoglobin 10.2, hematocrit 31.6, platelets 222. Neutrophils 84.5%. CMP is remarkable for BUN 35, creatinine 1.2, GFR 57, random glucose 226, otherwise unremarkable. Cardiac enzymes are negative. Lipase is 57. UA is not suggestive of UTI. Chest x-ray: No acute disease. Patient and the patient's son were made aware of all findings. The patient is currently chest pain-free. He does have a nonspecific leukocytosis/ neutrophilia. Again no known history of CAD or pulmonary disease. He does have several cardiac risk factors. He was given a full aspirin here in the emergency department. He will be admitted for overnight observation for further treatment and evaluation of chest pain, leukocytosis. Patient and the patient's son are amenable with this plan. Case discussed with [facility] hospitalist Dr. Valle. The patient will be admitted to their service under Dr. Leavitt. Diagnosis Primary Impression: Chest pain Qualified Code: R07.9 - Chest pain, unspecified type Additional Impression: Leukocytosis Qualified Code: D72.829 - Leukocytosis, unspecified type Admitting Information Admitting Physician Requests: Observation Prince Lewis MD May 30, 2017 16:42
[2017-05-30] MEDS ORDERED: ASPIRIN 81 MG CHEW TAB PO ONE (16:45)
[2017-05-30] MEDS ORDERED: SODIUM CHLORIDE 0.9% FLUSH 10 ML FLUSH IVF PRN (16:45)
[2017-05-30 17:00] LABS: AUTOMATED NEUTROPHIL # 13.6 TH/MM3 (1.8-7.7); BASOPHIL # 0.2 TH/MM3 (0-0.2); BASOPHIL % 1.4 % (0.0-2.0); EOSINOPHIL # 0.1 TH/MM3 (0-0.4); EOSINOPHIL % 0.4 % (0.0-4.0); HEMATOCRIT 31.6 % (39.0-51.0); HEMO FLAGS DIFF FINAL; LYMPH % 6.7 % (9.0-44.0); LYMPHOCYTE # 1.1 TH/MM3 (1.0-4.8); MEAN CELL VOLUME 86.7 FL (80.0-100.0); MEAN CORPUSCULAR HEMOGLOBIN 28.1 PG (27.0-34.0); MEAN CORPUSCULAR HGB CONC 32.4 % (32.0-36.0); NEUT % 84.5 % (16.0-70.0); PLATELET COUNT 222 TH/MM3 (150-450); RED BLOOD COUNT 3.64 MIL/MM3 (4.50-5.90); RED CELL DISTRIBUTION WIDTH 14.9 % (11.6-17.2); WHITE BLOOD COUNT 16.1 TH/MM3 (4.0-11.0)
[2017-05-30 17:04] VITALS: BP 146/66; PULSE 91; RESP 18; O2SAT 98
[2017-05-30 17:13] LABS: CHLORIDE 103 MEQ/L (98-107); POTASSIUM 4.2 MEQ/L (3.5-5.1); SODIUM (NA) 141 MEQ/L (136-145)
[2017-05-30 17:17] LABS: ANION GAP 10 MEQ/L (5-15); BICARBONATE 28.2 MEQ/L (21.0-32.0); BLOOD UREA NITROGEN 35 MG/DL (7-18); MAGNESIUM 1.9 MG/DL (1.5-2.5)
[2017-05-30 17:18] LABS: APTT (PATIENT) 25.4 SEC (24.3-30.1); PROTHROMBIN TIME - PATIENT 11.2 SEC (9.8-11.6)
[2017-05-30 17:20] LABS: ALT (GPT) 15 U/L (12-78); AST (GOT) 8 U/L (15-37); GLOMERULAR FILTRATION RATE 57 ML/MIN (>89)
[2017-05-30 17:21] LABS: TOTAL BILIRUBIN ADULT 0.3 MG/DL (0.2-1.0)
[2017-05-30 17:23] LABS: ALKALINE PHOSPHATASE 68 U/L (45-117)
[2017-05-30 17:26] LABS: CREATINE KINASE 24 U/L (39-308)
[2017-05-30 17:29] LABS: BLOOD, URINE NEG (NEG); GLUCOSE,URINE NEG (NEG); KETONE, URINE NEG (NEG); NITRITE,URINE NEG (NEG)
--- NOTE | 2017-05-30 17:31 | RADRPT ---
EXAM DATE/TIME: 05/30/2017 17:09 [facility] COMPARISON: CHEST SINGLE AP, February 08, 2017, 11:59. INDICATIONS : Chest pain. MEDICAL HISTORY : None. SURGICAL HISTORY : None. ENCOUNTER: Initial ACUITY: 1 day PAIN SCORE: 0/10 LOCATION: Bilateral chest FINDINGS: A single view of the chest demonstrates the lungs to be symmetrically aerated without evidence of mas s, infiltrate or effusion. The cardiomediastinal contours are unremarkable. Osseous structures are intact. CONCLUSION: No acute disease. Boy Rodrigues MD on May 30, 2017 at 17:26 Board Certified Radiologist. This report was verified electronically.
[2017-05-30 17:36] LABS: METHOD OF COLLECTION CATH; URINE COLOR YELLOW (YELLW/STRAW)
[2017-05-30 17:37] LABS: CULTURE IF INDICATED CATH CULTURE NOT IND; SQUAMOUS EPITHELIAL CELL URINE 0-5 /hpf (0-5); WBC, URINE 0-2 /hpf (0-5)
[2017-05-30 17:38] LABS: COMMENT (UR) CATH-CULT NOT IND; TRANSITIONAL EPI CELLS, URINE 0-5 /hpf
[2017-05-30] MEDS ORDERED: GLUCAGON 1 MG/ML VIAL OTHER PRN (18:30)
[2017-05-30] MEDS ORDERED: BISACODYL 10 MG SUPP RECTAL PRN (18:30)
[2017-05-30] MEDS ORDERED: DEXTROSE 50% IN WATER 50 ML VIAL(D50) IV PRN (18:30)
[2017-05-30] MEDS ORDERED: ACETAMINOPHEN 325 MG TAB PO PRN (18:30)
[2017-05-30] MEDS ORDERED: LACTULOSE SYRUP 20 GM/30 ML CUP PO PRN (18:30)
[2017-05-30] MEDS ORDERED: NALOXONE HCL 0.4 MG/ML AMP IV PRN (18:30)
[2017-05-30] MEDS ORDERED: MAGNESIUM HYDROXIDE SUSP 30 ML CUP PO PRN (18:30)
[2017-05-30] MEDS ORDERED: SENNOSIDES 8.6 MG TAB PO PRN (18:30)
[2017-05-30] MEDS ORDERED: ONDANSETRON HCL 4 MG/2 ML VIAL IVP PRN (18:30)
[2017-05-30] MEDS ORDERED: SODIUM CHLORIDE 0.9% FLUSH 10 ML FLUSH IV FLUSH PRN (18:30)
[2017-05-30 19:37] VITALS: BP 118/60; PULSE 77; RESP 20; O2SAT 97
[2017-05-30] MEDS: INSULIN ASPART SUPPLEMENTAL SCALE SQ SCH (20:53)
[2017-05-30] MEDS ORDERED: INSULIN DETEMIR 100 UNITS/ML VIAL SQ SCH (21:00)
[2017-05-30 21:13] VITALS: BP 137/72
[2017-05-30 21:19] VITALS: BP 139/78; PULSE 80; RESP 20; TEMP 98.9; O2SAT 98
[2017-05-30 21:29] VITALS: PULSE 69
[2017-05-30] MEDS: DOCUSATE SODIUM 50 MG/SENNA 8.6 MG TAB PO SCH (21:55)
[2017-05-30] MEDS: ATORVASTATIN 20 MG TAB PO SCH (21:55)
[2017-05-30] MEDS: MORPHINE SULFATE 30 MG CONTROLLED RELEASE TAB PO SCH (21:55)
[2017-05-30] MEDS: SODIUM CHLORIDE 0.9% FLUSH 10 ML FLUSH IV FLUSH SCH (21:56)
[2017-05-31 00:35] VITALS: BP 142/77; PULSE 69; RESP 16; TEMP 98.1; O2SAT 98
[2017-05-31 04:59] VITALS: BP 128/75; PULSE 70; RESP 18; TEMP 96.6; O2SAT 98
[2017-05-31] MEDS: LEVOTHYROXINE SODIUM 50 MCG TAB PO SCH (05:59)
[2017-05-31] MEDS: INSULIN ASPART SUPPLEMENTAL SCALE SQ SCH ×4 (06:04→21:00)
[2017-05-31 08:00] VITALS: BP 141/72; PULSE 68; RESP 18; TEMP 97; O2SAT 97
[2017-05-31] MEDS: MORPHINE SULFATE 30 MG CONTROLLED RELEASE TAB PO SCH ×2 (08:11→22:20)
[2017-05-31] MEDS: DOCUSATE SODIUM 50 MG/SENNA 8.6 MG TAB PO SCH ×2 (08:11→22:21)
[2017-05-31] MEDS: SPIRONOLACTONE 25 MG TAB PO SCH (08:12)
[2017-05-31] MEDS: HYDROCHLOROTHIAZIDE 25 MG TAB PO SCH (08:12)
[2017-05-31] MEDS: ASPIRIN 81 MG CHEW TAB CHEW SCH (08:12)
[2017-05-31] MEDS: SODIUM CHLORIDE 0.9% FLUSH 10 ML FLUSH IV FLUSH SCH ×2 (08:13→22:19)
--- NOTE | 2017-05-31 09:18 | MB ---
cc: ERENDIRA BRODERICK MD DATE OF CONSULTATION: 05/31/2017 REASON FOR CONSULTATION Chest pain. HISTORY OF PRESENT ILLNESS The patient is a very pleasant 86-year-old gentleman with no prior cardiac history. Yesterday he describes a severe episode of central chest discomfort. The patient is a somewhat poor historian. He did eventually describe the pain as aching but when trying to assess the quality he says that currently he is still having 8/10 chest pain despite the fact that he is resting comfortably in bed, smiling and appears quite comfortable during the exam. He says that yesterday his pain was at a 9/10 scale. Otherwise he is asymptomatic without any current shortness of breath, lightheadedness, dizziness, and again he says that he has never had any cardiac problems in the past. PAST MEDICAL HISTORY 1. Hypertension. 2. Diabetes. 3. Dementia. MEDICATIONS Home medications include: 1. Aldactone. 2. Amlodipine. 3. Sertraline. 4. Atorvastatin. 5. Greene. 6. Humalog. 7. Metformin. 8. Memantine. 9. Levothyroxine. 10.Latnus. 11.Aricept. 12.Celexa. 13.Buspirone. 14.Aspirin. ALLERGIES 1. CODEINE. 2. VISIPAQUE. PHYSICAL EXAMINATION VITAL SIGNS: Afebrile. Pulse 70, respiratory rate 18, BP 128/75. Satting 98% on room air. GENERAL: A pleasant well-appearing gentleman in no distress. NECK: No JVD. LUNGS: Clear to auscultation bilaterally. CARDIOVASCULAR: Regular rate and rhythm. No significant murmurs appreciated. ABDOMEN: Benign. EXTREMITIES: No edema. LABORATORY DATA Sodium 141, potassium 4.2, chloride 103, bicarb 28.2, BUN 35, creatinine 1.2, glucose 226. Cardiac enzymes are negative x3. INR is 1.0. White count 16.1, hematocrit 31.6, platelets 222. IMAGING DATA Chest x-ray shows no acute disease. EKG DATA EKG shows sinus rhythm with no acute ST or T-wave changes. IMPRESSION Chest pain. The patient's chest pain is somewhat difficult to qualify further given the patient's relatively difficult history. I will have him undergo a nuclear stress test today. Unless there is major ischemia I would likely to opt to treat medically particularly given his contrast allergy and very advanced age as well as his somewhat difficult symptomatology. Further recommendations will be based on his stress test and clinical course. If his nuclear stress test is nonischemic and the patient appears comfortable and denies chest pain, I would not be opposed to him being discharged back to his nursing facility. Thank you again for the opportunity to participate in this patient's care. MD KYLER Silver/YUAN /7:50 AM /9:15 AM
[2017-05-31] MEDS ORDERED: clonazePAM 0.5 MG TAB PO PRN (11:15)
[2017-05-31] MEDS: MEMANTINE HCL 10 MG TAB PO SCH ×2 (11:15→22:21)
[2017-05-31] MEDS: busPIRone HCL 5 MG TAB PO SCH ×2 (11:15→22:21)
--- NOTE | 2017-05-31 11:32 | MH ---
cc: SAMPSON OCAMPO MD DATE OF ADMISSION: 05/30/2017 CHIEF COMPLAINT Chest pain. 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 He came to the ER at [facility] complaining of chest pain which was central and he lives at [facility] in [place] and he came in for evaluation of the chest pain. The chest pain at the time of examination was 2-3/10, central, radiated to the back. He denied any shortness of breath, had some sweating, denied any fever or chills or cough. He denied any nausea or vomiting. Denied any abdominal pain. Denied any urinary tract infection symptom or any neurological symptoms. Other than that, nothing significant. PAST MEDICAL-SURGICAL HISTORY As dictated above. SOCIAL HISTORY Denies smoking, drinking or taking any drugs at the [facility]. He is a retired sales service professional. FAMILY HISTORY Nothing significant. ALLERGIES VISIPAQUE. CODEINE. MEDICATIONS 1. Clonazepam 0.5 mg twice a day. 2. Morphine ER 30 mg twice a day. 3. Spironolactone 25 mg p.o. daily. 4. Amlodipine 20 mg p.o. daily. 5. Cetirizine 10 mg p.o. at bedtime. 6. Atorvastatin 20 mg p.o. at bedtime. 7. [place] 5/325 p.o. q. 4 hours p.r.n. pain. 8. Humalog according to sliding scale. 9. Magnesium oxide 500 mg twice a day. 10. Iron sulfate 325 mg twice. 11. Vitamin D3 2000 units p.o. daily. 12. Senolax 8.8 mg tablet daily p.r.n. constipation. 13. Methenamine hippurate 1 gram p.o. b.i.d. 14. Metformin 1000 mg p.o. b.i.d. 15. Memantine 10 mg twice a day. 16. Levothyroxine 50 mcg p.o. daily. 17. Lantus 26 units subcutaneous at bedtime. 18. Hydrochlorothiazide 25 mg p.o. daily. 19. Folic acid 400 mcg p.o. daily. 20. Lexapro 10 mg p.o. daily. 21. Dorzolamide ophthalmic drop 2% one drop each eye twice a day. 22. Donepezil 10 mg p.o. at bedtime. 23. Buspirone 5 mg twice a day. 24. Aspirin 81 mg p.o. daily. REVIEW OF SYSTEMS Positive for chest pain. All other review of systems negative. PHYSICAL EXAMINATION GENERAL: This is an 86-year-old male sitting on the bed, in no apparent acute distress. VITAL SIGNS: Temperature 97.0, heart rate 68, respirations 18, blood pressure 141/72. O2 saturation 97% on room air. HEENT: Normocephalic, atraumatic. EOMI. PERRL. Oral mucosa moist. NECK: Supple. No visible thyromegaly or neck mass. Trachea is central. CVS: Regular rate and rhythm. RESPIRATIONS: Clear to auscultation bilaterally. ABDOMEN: Soft, nontender. Bowel sounds audible. EXTREMITIES: No cyanosis or clubbing. Full range of motion of all extremities. NEURO: Awake, alert, oriented x 4. No focal deficits. SKIN: Warm and dry. PSYCH: The patient is cooperative. Mood and affect is normal. LABORATORY DATA CBC totally unremarkable except for WBC count of 16.1 - high, hemoglobin 10.2 - low, hematocrit 31.6 - low, neutrophil 84.5 - high, lymphocytes 6.7 - low. BMP totally unremarkable except for BUN 35 - high, glucose random 226 - high. Troponin-I less than 0.02 x 3. Total creatine kinase 24, albumin 3.2, lipase 57. PT 11.2, INR 1.0, APTT 25.4. Urine examination is normal. CHEST X-RAY Done and shows no acute disease. EKG Done and shows sinus rhythm with rate of 89, nonspecific ST-T wave changes. Other than that, nothing acute. ASSESSMENT AND PLAN This is an 86-year-old male who came to the ER diagnosed with chest pain, rule out acute coronary syndrome. 1. Chest pain, rule out acute coronary syndrome. Cardiac enzymes, troponin-I x3 less than 0.0. The patient is getting a nuclear stress test. Cardiology has seen the patient. Further recommendation per patient progress and stress test results. 2. History of diabetes mellitus. NovoLog low-dose sliding scale. Check blood sugars at bedtime and monitor blood sugar. 3. History of hypothyroidism. Continue with levothyroxine 50 mcg p.o. daily. 4. History of hypertension. Continue home medication. Monitor blood pressure. 5. History of dementia. Continue with to donepezil 10 mg p.o. at bedtime. 6. History of depression, currently on home medication. 7. Folic acid deficiency. Continue folic acid. 8. Iron deficiency. Continue with iron. 9. Vitamin D deficiency. Continue with vitamin D replacement. 10. Constipation. Continue with laxative as needed. 11. History of hyperlipidemia. Continue Lipitor 20 mg p.o. at night. 12. History of anxiety. Continue with clonazepam 0.5 mg p.o. b.i.d. 13. History of arthritis. Continue home medication. 14. Leukocytosis, unknown cause. Urinalysis normal. I will check CT chest to rule out pneumonia. 15. DVT prophylaxis - Lovenox 40 mg subcutaneous daily. 16. GI prophylaxis - Protonix 40 mg p.o. daily. We are going to manage the patient on a daily basis and make recommendations on a daily basis. Sampson Ocampo MD EA/MOLINA /10:53 AM /11:09 AM
[2017-05-31 12:00] VITALS: BP 96/58; PULSE 69; RESP 20; TEMP 97.5; O2SAT 94
[2017-05-31] MEDS: DORZOLAMIDE 2% OPTH SOLN 200 DROP/10 ML BTLO EACH EYE SCH ×2 (13:00→22:19)
[2017-05-31] MEDS ORDERED: METHENAMINE MANDELATE 500 MG TAB PO SCH (13:00)
[2017-05-31] MEDS ORDERED: REGADENOSON INJ 0.4 MG/5 ML SYR IV ONE (13:09)
[2017-05-31] MEDS: metFORMIN HCL 500 MG TAB PO SCH ×2 (14:05→18:10)
[2017-05-31] MEDS: FOLIC ACID 1 MG TAB PO SCH (14:05)
[2017-05-31] MEDS: MAGNESIUM OXIDE 400 MG TAB PO SCH ×2 (14:06→22:20)
[2017-05-31] MEDS: ESCITALOPRAM OXALATE 10 MG TAB PO SCH (14:06)
[2017-05-31] MEDS: FERROUS SULFATE 325 MG (65 MG ELEMENTAL IRON) TAB PO SCH ×2 (14:06→18:10)
[2017-05-31] MEDS: ENOXAPARIN SODIUM 40 MG/0.4 ML SYRINGE SQ SCH (14:06)
[2017-05-31] MEDS: PANTOPRAZOLE SOD 40 MG DELAYED RELEASE TAB PO SCH (14:06)
--- NOTE | 2017-05-31 14:25 | EKG ---
Date Performed: 05/30/2017 Time Performed: 16:30:11 PTAGE: 86 years EKG: Sinus rhythm MARKED LEFT AXIS DEVIATION PATTERN CONSISTENT WITH PULMONARY DISEASE Since previous tracing, no sign ificant change noted ABNORMAL ECG PREVIOUS TRACING : 02/09/2017 02.59 DOCTOR: Elliot Peña Interpretating Date/Time 05/31/2017 14:24:14
--- NOTE | 2017-05-31 14:38 | RADRPT ---
EXAM DATE/TIME: 05/31/2017 13:01 [facility] COMPARISON: No previous studies available for comparison. INDICATIONS : Mid chest pain with shortness of breath for one day. Angina. DOSE: 26.3 mCi Tc99m Myoview at stress. 8.6 mCi Tc99m Myoview at rest. 0.4 mg Lexiscan STRESS SYMPTOMS: None noted. EJECTION FRACTION: 62% MEDICAL HISTORY : Diabetes mellitus type 2. Hypothyroidism. Hypertension. SURGICAL HISTORY : Cholecystectomy. Nephrectomy, right. ENCOUNTER: Initial ACUITY: 1 day PAIN SCALE: 8/10 LOCATION: Midsternal chest TECHNIQUE: The patient underwent pharmacologic stress with infusion of prescribed dose. Continuous ECG tracing was monitored during stress. Gated SPECT imaging was performed after stress and conventional SPECT i maging was performed at rest. The examination was performed on a SPECT/CT scanner, both attenuation and non-corrected datasets were reviewed. FINDINGS: DISTRIBUTION: The maximum perfused segment at stress is in the anterior septal wall. PERFUSION STUDY: The pattern of perfusion at stress is within normal limits. GATED STUDY: There is intact wall motion and thickening without hypokinetic or dyskinetic segments. CONCLUSION: Negative for stress-induced ischemia. RISK CATEGORY: Low (<1% Annual Mortality Rate) Tigre Bruno MD FACR on May 31, 2017 at 14:35 Board Certified Radiologist. This report was verified electronically.
[2017-05-31 16:00] VITALS: BP 105/57; PULSE 74; RESP 19; TEMP 95.9; O2SAT 98
[2017-05-31] MEDS ORDERED: NON-FORMULARY DRUG (Insulin Lispro (Human) Inj (Humalog Inj) 0 UNITS) SQ SCH (16:00)
[2017-05-31 20:00] VITALS: BP 114/65; PULSE 74; RESP 18; TEMP 96.6; O2SAT 97
--- NOTE | 2017-05-31 20:23 | RADRPT ---
EXAM DATE/TIME: 05/31/2017 18:34 [facility] COMPARISON: CT PELVIS W/O CONTRAST, February 08, 2017, 14:29. CHEST SINGLE AP, May 30, 2017, 17:09. INDICATIONS : Anterior chest pain. Leukocytosis. RADIATION DOSE: 9.30 CTDIvol (mGy) MEDICAL HISTORY : Hypertension. Gastroesophageal reflux disease. Carcinoma, prostate. Right renal cancer. SURGICAL HISTORY : Nephrectomy, right. Cholecystectomy. ENCOUNTER: Initial ACUITY: 1 day PAIN SCALE: 3/10 LOCATION: chest TECHNIQUE: Volumetric scanning of the chest was performed. Using automated exposure control and adjustment of t he mA and/or kV according to patient size, radiation dose was kept as low as reasonably achievable to obtain optimal diagnostic quality images. DICOM format image data is available electronically for r eview and comparison. FINDINGS: LUNGS: There is no consolidation or pneumothorax. No concerning pulmonary nodule is visualized. There is a curvilinear area of opacity in the posterior left lower lung which has a configuration characteristi c of chronic scarring. PLEURAE: There is no pleural thickening or pleural effusion. MEDIASTINUM: The heart and great vessels demonstrate no acute abnormality. There is no mediastinal or hilar lymph adenopathy. Coronary artery calcifications. Mild tortuosity descending thoracic aorta. AXILLAE: Within normal limits. No lymphadenopathy. MUSCULOSKELETAL: Within normal limits for patient age. MISCELLANEOUS: The visualized upper abdominal organs demonstrate no acute abnormality. Right nephrectomy. Both adr enal glands are normal in appearance. Cholecystectomy. CONCLUSION: No focal areas of consolidation. Chronic scarring of the left lung base. Mekhi Mcqueen MD on May 31, 2017 at 20:18 Board Certified Radiologist. This report was verified electronically.
[2017-05-31] MEDS: METHENAMINE PO SCH (21:00)
[2017-05-31] MEDS ORDERED: INSULIN DETEMIR 100 UNITS/ML VIAL SQ SCH (21:00)
[2017-05-31] MEDS ORDERED: DONEPEZIL HCL 5 MG TAB PO SCH (21:00)
[2017-05-31] MEDS ORDERED: CETIRIZINE HCL 10 MG TAB PO SCH (21:00)
[2017-05-31] MEDS: ATORVASTATIN 20 MG TAB PO SCH (22:21)
[2017-06-01] VITALS: BP 110/70; PULSE 80; RESP 18; TEMP 96.6; O2SAT 95
[2017-06-01 04:00] VITALS: BP 103/65; PULSE 80; RESP 18; TEMP 96.5; O2SAT 98
[2017-06-01] MEDS: INSULIN ASPART SUPPLEMENTAL SCALE SQ SCH ×2 (05:36→11:00)
--- NOTE | 2017-06-01 05:36 | HHI.PR ---
Subjective History of Present Illness Patient deny any complaints. Stress test negative CT Chest did not show pneumonia WBC count down trend. OK to discharge per Cardiology. Vitals/Results Intake & Output 05/31/17 05/31/17 06/01/17 15:00 23:00 07:00 Intake Total 240 ml Output Total 250 ml 100 ml Balance -10 ml -100 ml Intake Oral 240 ml Output Urine Total 250 ml 100 ml Vital Signs Vital Signs Date Time Temp Pulse Resp B/P Pulse Ox O2 Delivery O2 Flow Rate FiO2 06/01/17 04:00 96.5 80 18 103/65 98 06/01/17 00:00 96.6 80 18 110/70 95 05/31/17 23:25 18 05/31/17 20:00 96.6 74 18 114/65 97 05/31/17 16:00 95.9 74 19 105/57 98 05/31/17 12:00 97.5 69 20 96/58 94 05/31/17 08:00 97.0 68 18 141/72 97 CBC/BMP: 05/30/17 1645 05/30/17 1645 Physical Exam General General Appearance: No Acute Distress, Comfortable Eyes Eye Exam: Sclera White, Extraocular Movement Intact Throat Throat Exam: Oral Mucosa [place] & Moist, Oral Pharynx Normal Neck Neck Exam: Neck Supple, Trachea Midline Pulmonary Resp Exam: Clear Bilaterally, Breath Sounds Equal, No Distress Cardiology CV Exam: Regular, Normal Sinus Rhythm Gastrointestinal/Abdomen GI Exam: Soft, Non-Tender, Bowel Sounds Present Musculoskeletal MS Exam: Normal Tone Integumentary Skin Exam: Clear, Warm, Dry, Intact Extremeties Extremities Exam: No Edema Neurologic Neuro Exam: Alert, Awake, Oriented, Moving All Extremities, No Focal Deficits PUD Prophylasis PUD Prophylaxis: Protonix Assessment/Plan Assessment/Plan ASSESSMENT AND PLAN This is an 86-year-old male who came to the ER diagnosed with 1. Chest pain, rule out acute coronary syndrome. Cardiac enzymes, troponin-I x3 less than 0.0. The patient s/p a nuclear stress test...negative ok to discharge per cardiology. 2. History of diabetes mellitus. NovoLog low-dose sliding scale. Check blood sugars at bedtime and monitor blood sugar. 3. History of hypothyroidism. Continue with levothyroxine 50 mcg p.o. daily. 4. History of hypertension. Continue home medication. Monitor blood pressure. 5. History of dementia. Continue with to donepezil 10 mg p.o. at bedtime. 6. History of depression, currently on home medication. 7. Folic acid deficiency. Continue folic acid. 8. Iron deficiency. Continue with iron. 9. Vitamin D deficiency. Continue with vitamin D replacement. 10. Constipation. Continue with laxative as needed. 11. History of hyperlipidemia. Continue Lipitor 20 mg p.o. at night. 12. History of anxiety. Continue with clonazepam 0.5 mg p.o. b.i.d. 13. History of arthritis. Continue home medication. 14. Leukocytosis, down trend... Urinalysis normal. checked CT chest to negative for pneumonia. 15. DVT prophylaxis - Lovenox 40 mg subcutaneous daily. 16. GI prophylaxis - Protonix 40 mg p.o. daily. ok to discharge home today. f/u with pcp/ cardiology 1 week. condition at discharge good. Activity as tolerated Diet cardiac medicine see discharge medicine list. Discussed Condition with: Patient Sampson Leavitt MD Jun 01, 2017 05:36
[2017-06-01] MEDS: LEVOTHYROXINE SODIUM 50 MCG TAB PO SCH (05:40)
[2017-06-01 07:37] LABS: BASOPHIL % 0.2 % (0.0-2.0); EOSINOPHIL # 0.2 TH/MM3 (0-0.4); EOSINOPHIL % 1.4 % (0.0-4.0); HEMATOCRIT 33.4 % (39.0-51.0); HEMO FLAGS DIFF FINAL; LYMPH % 18.5 % (9.0-44.0); LYMPHOCYTE # 2.1 TH/MM3 (1.0-4.8); MEAN CELL VOLUME 86.7 FL (80.0-100.0); MEAN CORPUSCULAR HEMOGLOBIN 28.2 PG (27.0-34.0); MEAN CORPUSCULAR HGB CONC 32.5 % (32.0-36.0); MONO % 6.9 % (0.0-8.0); PLATELET COUNT 231 TH/MM3 (150-450); RED BLOOD COUNT 3.85 MIL/MM3 (4.50-5.90); RED CELL DISTRIBUTION WIDTH 14.9 % (11.6-17.2); WHITE BLOOD COUNT 11.1 TH/MM3 (4.0-11.0)
[2017-06-01 07:40] LABS: CHLORIDE 104 MEQ/L (98-107); POTASSIUM 3.8 MEQ/L (3.5-5.1); SODIUM (NA) 142 MEQ/L (136-145)
[2017-06-01 07:44] LABS: ANION GAP 8 MEQ/L (5-15); BICARBONATE 29.6 MEQ/L (21.0-32.0); BLOOD UREA NITROGEN 36 MG/DL (7-18)
[2017-06-01 07:58] LABS: ALKALINE PHOSPHATASE 80 U/L (45-117); ALT (GPT) 16 U/L (12-78); AST (GOT) 14 U/L (15-37); GLOMERULAR FILTRATION RATE 63 ML/MIN (>89); TOTAL BILIRUBIN ADULT 0.4 MG/DL (0.2-1.0)
[2017-06-01 08:00] VITALS: BP 101/63; PULSE 74; RESP 20; TEMP 97.8; O2SAT 99
[2017-06-01] MEDS: DORZOLAMIDE 2% OPTH SOLN 200 DROP/10 ML BTLO EACH EYE SCH (08:36)
[2017-06-01] MEDS: metFORMIN HCL 500 MG TAB PO SCH (08:36)
[2017-06-01] MEDS: SODIUM CHLORIDE 0.9% FLUSH 10 ML FLUSH IV FLUSH SCH (08:36)
[2017-06-01] MEDS: busPIRone HCL 5 MG TAB PO SCH (08:37)
[2017-06-01] MEDS: FOLIC ACID 1 MG TAB PO SCH (08:37)
[2017-06-01] MEDS: MAGNESIUM OXIDE 400 MG TAB PO SCH (08:37)
[2017-06-01] MEDS: PANTOPRAZOLE SOD 40 MG DELAYED RELEASE TAB PO SCH (08:37)
[2017-06-01] MEDS: MORPHINE SULFATE 30 MG CONTROLLED RELEASE TAB PO SCH (08:38)
[2017-06-01] MEDS: FERROUS SULFATE 325 MG (65 MG ELEMENTAL IRON) TAB PO SCH (08:38)
[2017-06-01] MEDS: DOCUSATE SODIUM 50 MG/SENNA 8.6 MG TAB PO SCH (08:38)
[2017-06-01] MEDS: ESCITALOPRAM OXALATE 10 MG TAB PO SCH (08:39)
[2017-06-01] MEDS: MEMANTINE HCL 10 MG TAB PO SCH (08:39)
[2017-06-01] MEDS: ASPIRIN 81 MG CHEW TAB CHEW SCH (08:39)
[2017-06-01] MEDS: HYDROCHLOROTHIAZIDE 25 MG TAB PO SCH (08:46)
[2017-06-01] MEDS: METHENAMINE PO SCH (08:46)
[2017-06-01] MEDS: SPIRONOLACTONE 25 MG TAB PO SCH (08:48)
[2017-06-01] MEDS: ENOXAPARIN SODIUM 40 MG/0.4 ML SYRINGE SQ SCH (11:57)
[2017-06-01 12:00] VITALS: BP 106/70; PULSE 80; RESP 20; TEMP 97.2; O2SAT 98
--- NOTE | 2017-06-01 12:47 | HHI.FF ---
Face to Face Verification Diagnosis: (1) Diabetes (2) Intertrochanteric fracture of right hip (3) Altered mental status (4) Adverse effect of morphinan opioid (5) Fall Physical Therapy Order: Evaluate and Treat, Improve ambulation, Strength and gait training Occupational Therapy Order: Evaluate and Treat, Improve ADL, Gross motor coordination Home Health Nursing Order: Medical education Medication education-adverse effect I have seen patient Sang Martins on 06/01/17. My clinical findings support the need for the requested home health care services because: Ltd mobility - disease progression Limited ability to care for self High risk of falls I certify that my clinical findings support that this patient is homebound because: Unsteady gait/balance Unsafe to leave home unassisted Unable to use public transportation Sampson Leavitt MD Jun 01, 2017 12:47
== END 2017-06-01 15:06 ==
LOC: PHED 16:12 → PHEDA 18:23 → UNDOADMOB 18:23 → PHEDA 21:07 → PH3A 21:07
PROVIDERS: ADMIT Family Medicine; ATTEND Family Medicine
DX: R07.89 Other chest pain (principal); R68.83 Chills (without fever); R06.00 Dyspnea, unspecified; R94.31 Abnormal electrocardiogram [ECG] [EKG]; R91.8 Other nonspecific abnormal finding of lung field; R06.02 Shortness of breath; M54.9 Dorsalgia, unspecified; E53.8 Deficiency of other specified B group vitamins; E61.1 Iron deficiency; E55.9 Vitamin D deficiency, unspecified; D72.829 Elevated white blood cell count, unspecified; K59.00 Constipation, unspecified; I10 Essential (primary) hypertension; I20.9 Angina pectoris, unspecified; E78.5 Hyperlipidemia, unspecified; E78.00 Pure hypercholesterolemia, unspecified; E11.9 Type 2 diabetes mellitus without complications; E03.9 Hypothyroidism, unspecified; K21.9 Gastro-esophageal reflux disease without esophagitis; Q25.46 Tortuous aortic arch; F03.90 Unspecified dementia, unspecified severity, without behavioral disturbance, psychotic disturbance, mood disturbance, and anxiety; F32.9 Major depressive disorder, single episode, unspecified; F41.9 Anxiety disorder, unspecified; H40.9 Unspecified glaucoma; M19.90 Unspecified osteoarthritis, unspecified site; H91.90 Unspecified hearing loss, unspecified ear; Z79.899 Other long term (current) drug therapy; Z85.54 Personal history of malignant neoplasm of ureter; Z90.5 Acquired absence of kidney; Z79.84 Long term (current) use of oral hypoglycemic drugs; Z79.82 Long term (current) use of aspirin; Z85.46 Personal history of malignant neoplasm of prostate; Z85.528 Personal history of other malignant neoplasm of kidney; Z86.73 Personal history of transient ischemic attack (TIA), and cerebral infarction without residual deficits
CPT/HCPCS: 71010; 71250; 78452; 80053; 81001; 82550; 82948; 83690; 83735; 84484; 85025; 85610; 85730; 93005; 93017; 99285; A9502; G0378; J1650; J1815; J2785; P9612